=== PATIENT | male | born 1945 | race Caucasian/White ===

== ENCOUNTER 2017-11-07 16:56 | Inpatient (IN) ==
--- NOTE | 2017-11-07 17:03 | Emergency Department Note ---
Disposition Clinical Impression: SYDNEE (acute kidney injury) Foot ulcer, left Qualifiers: Non-pressure ulcer stage: unspecified non-pressure ulcer stage Qualified Code(s ): L97.529 - Non-pressure chronic ulcer of other part of left foot with unspecified severity Disposition: Admitted As Inpatient Condition: Good [facility]: [facility]Primary Care Provider[facility] - Forms: ED Satisfaction Letter Extremity Problem HPI - General Chief complaint: ED Extremity Problem,Nontraumatic Stated complaint: Foot Infection Time Seen by Provider: 11/07/17 17:00 Source: patient Mode of arrival: EMS Limitations: no limitations Nursing Notes Reviewed: Yes Vital Signs Reviewed: Yes - History of Present Illness HPI Narrative: 72-year-old male with a past medical history of hypertension, hyperlipidemia, Parkinson's who presents to the ER from the [facility] due to concern for gangrene. Patient states he has had issues with his left foot for several days and started noticing changes 2 days ago. States that it has been more swollen on the outside portion. He reports he is diabetic and has no sensation in his lower extremities. Denies any fevers nausea vomiting or diarrhea. He was seen today where they did an x-ray concerning for gangrene and was sent here for evaluation. He voices no complaints upon arrival. Pt Subjective Complaint: other (Left foot infection) Onset (ago): day(s) Consistency: constant Injury Location: left, lower extremity Pain Scale: 3 Radiation: none Improves with: nothing Worsens with: nothing Associated symptoms: Reports: denies other symptoms - Related Data Home Medications Medication Instructions Recorded Confirmed Carbidopa/Levodopa 1 tab PO TID 11/07/17 11/07/17 [Carbidopa-Levodopa 25-100 Tab] Metoprolol [Lopressor] 25 mg PO BID 11/07/17 11/07/17 Simvastatin [Zocor] 20 mg PO HS 11/07/17 11/07/17 diazePAM [Valium] 10 mg PO DAILY 11/07/17 11/07/17 hydroCHLOROthiazide 25 mg PO DAILY 11/07/17 11/07/17 [Hydrochlorothiazide] metFORMIN [Glucophage] 500 mg PO BIDWM 11/07/17 11/07/17 Allergies Allergy/AdvReac Type Severity Reaction Status Date / Time Penicillins [PCN] Allergy Rash Verified 11/07/17 17:32 All systems ED: reviewed and negative except as stated. Constitutional: Denies: fever, chills Gastrointestinal: Denies: nausea, vomiting, diarrhea Musculoskeletal: Reports: other (Left foot swelling) Past Medical History - Past Medical History Attestation: Yes The following information was validated with the patient. Source: patient Medical history: Reports: diabetes, hyperlipidemia, hypertension Surgical history: Reports: non-contributory Physical Exam - General Limitations: no limitations General appearance: alert, in no apparent distress - Head Head exam: atraumatic - Eye Eye exam: Present: normal appearance - ENT ENT exam: normal exam - Neck Neck exam: Present: normal inspection - Chest Chest inspection: Present: normal inspection, symmetric chest wall rise - Respiratory Respiratory exam: Present: normal lung sounds bilaterally - Cardiovascular Cardiovascular exam: Present: regular rate, normal rhythm, normal heart sounds - Abdominal Exam Abdominal exam: Present: soft, Non-Tender. Absent: tenderness - Extremities Exam Extremities exam: Present: normal inspection, full ROM - Expanded Upper Extremity Exam Shoulder exam: Present: normal inspection, full ROM Arm exam: Present: normal inspection, full ROM Elbow exam: Present: normal inspection, full ROM Forearm/Wrist exam: Present: normal inspection, full ROM Hand exam: Present: normal inspection, full ROM - Expanded Lower Extremity Exam Hip/Pelvis exam: Present: normal inspection, full ROM Upper leg exam: Present: normal inspection, full ROM Knee exam: Present: normal inspection, full ROM Lower leg exam: Present: normal inspection, full ROM Ankle exam: Present: normal inspection, full ROM Foot/toe exam: Present: swelling (There is significant soft tissue swelling to the lateral distal aspect of the left foot with 2 independent ulcerated areas one on the dorsum on the plantar aspect. No expressible drainage from the site. No crepitus on palpation of the foot or extending up to the ankle.) Neurovascular/Tendon exam: Absent: motor deficit, sensory deficit - Skin Skin exam: Present: warm, dry Course Course Narrative: Patient seen and examined at time of arrival. 2+ DP pulse on the left foot. [facility] no documented antibiotics given. We will cover him broad-spectrum with vancomycin, cefepime and clindamycin. We will also pursue a CT scan of his foot as well as labs including inflammatory markers , lactate. - Consultations Consultation #1: Discussed with the on-call government guard Dr. sessions. Discussed patient's history exam imaging and lab findings as well as interventions. Agreeable with consultation and admit to the hospitalist service. Vital Signs Temperature 98.5 F 11/07/17 17:01 Pulse Rate 82 11/07/17 17:01 Respiratory Rate 14 11/07/17 17:01 Blood Pressure 169/81 11/07/17 17:01 O2 Sat by Pulse Oximetry 99 11/07/17 17:01 Temperature 98.5 F 11/07/17 17:01 Pulse Rate 82 11/07/17 17:01 Respiratory Rate 14 11/07/17 17:01 Blood Pressure 169/81 11/07/17 17:01 O2 Sat by Pulse Oximetry 99 11/07/17 17:01 Oxygen Delivery Oxygen Delivery Room Air Extremity Problem, Nontraumati - MDM Narrative Medical decision making narrative: 72-year-old male with left foot swelling for several days. History of diabetic neuropathy. Ulceration to the lateral distal fifth digit. Hemodynamic stable. Normal white count. Elevated ESR and CRP. CT evidence of ulceration without fluid collection. Patient given vancomycin, cefepime and Clinda. Case discussed with podiatry in consultation. Admitted to the hospitalist service. - Lab Data Lab results reviewed: Yes I reviewed the patient's lab results. Result diagrams: 11/07/17 17:10 11/07/17 17:10 Lab Results 11/07/17 11/07/17 11/07/17 Range/Units 17:10 17:10 17:10 WBC (4.3-11.1) K/mcL RBC (4.19-5.50) M/mcL Hgb (12.9-16.9) g/dL Hct (37.5-50.1) % MCV (83.0-100.0) fL MCH (28.0-33.3) pg MCHC (31.6-35.5) g/dL RDW (11.5-14.5) % Plt Count (140-400) K/mcL MPV (9.4-12.4) fL Immature Gran % (0-4) % Seg Neutrophils % % Lymphocytes % % Monocytes % % Eosinophils % % Basophils % % Neutrophils # (1.6-8.9) K/mcL Lymphocytes # (0.6-4.6) K/mcL Monocytes # (0.0-1.3) K/mcL Eosinophils # (0.0-0.6) K/mcL Basophils # (0.0-0.2) K/mcL ESR 76 H (0-10) mm/hr Sodium (136-145) mEq/L Potassium (3.5-5.1) mEq/L Chloride (98-107) mEq/L Carbon Dioxide (23-29) mEq/L BUN (8-23) mg/dL Creatinine (0.70-1.30) mg/dL Est GFR ( Amer) (> 60) Est GFR (Non-Af Amer) (> 60) BUN/Creatinine Ratio (6-26) Glucose (70-105) mg/dL Calculated Osmolality (280-300) Lactic Acid 1.3 (0.5-2.2) mmol/L Calcium (8.6-10.3) mg/dL C-Reactive Protein 187 H (Less than 10) mg/L 11/07/17 11/07/17 Range/Units 17:10 17:10 WBC 10.9 (4.3-11.1) K/mcL RBC 3.04 L (4.19-5.50) M/mcL Hgb 10.7 L (12.9-16.9) g/dL Hct 29.6 L (37.5-50.1) % MCV 97.4 (83.0-100.0) fL MCH 35.2 H (28.0-33.3) pg MCHC 36.1 H (31.6-35.5) g/dL RDW 12.5 (11.5-14.5) % Plt Count 165 (140-400) K/mcL MPV 10.1 (9.4-12.4) fL Immature Gran % 0.4 (0-4) % Seg Neutrophils % 84.7 % Lymphocytes % 6.6 % Monocytes % 7.7 % Eosinophils % 0.4 % Basophils % 0.2 % Neutrophils # 9.2 H (1.6-8.9) K/mcL Lymphocytes # 0.7 (0.6-4.6) K/mcL Monocytes # 0.8 (0.0-1.3) K/mcL Eosinophils # 0.0 (0.0-0.6) K/mcL Basophils # 0.0 (0.0-0.2) K/mcL ESR (0-10) mm/hr Sodium 136 (136-145) mEq/L Potassium 3.5 (3.5-5.1) mEq/L Chloride 100 (98-107) mEq/L Carbon Dioxide 27 (23-29) mEq/L BUN 33 H (8-23) mg/dL Creatinine 1.59 H (0.70-1.30) mg/dL Est GFR ( Amer) 52 L (> 60) Est GFR (Non-Af Amer) 43 L (> 60) BUN/Creatinine Ratio 21 (6-26) Glucose 154 H (70-105) mg/dL Calculated Osmolality 292 (280-300) Lactic Acid (0.5-2.2) mmol/L Calcium 8.9 (8.6-10.3) mg/dL C-Reactive Protein (Less than 10) mg/L - Radiology Data Radiology results reviewed: Yes I reviewed the patient's radiology results. Foot CT 11/07/17 17:02 IMPRESSION: 1. No CT evidence of osteomyelitis or other acute osseous abnormality. If clinically indicated further evaluation could be obtained with MRI. 2. Large deep soft tissue ulceration lateral to the 5th MTP joint with underlying induration. No definite sinus tract or drainable fluid collection. 3. Diffuse subcutaneous fat stranding compatible with cellulitis. D/ / Prakash Guerrero MD / Prakash Guerrero MD Interpreting Provider: Prakash Guerrero MD S.Hussain - [place] Situation: Demographics, MOA Background: Presenting Complaint, Relevant PMH, Meds, & Allergies Assessment: Vital Signs, Course and respsone to treatment, Exam Concerns, Patient/Family Expectation, Pertinant Lab Results Recommendation: Barrier(s) to disposition, Recommendation based on pending studies, treatments, or consults S.Hussain Report Given to: Antolin Saleem [facility] Time: 18:38
[2017-11-07] MEDS ORDERED: Clindamycin 600 MG/50 ML 600 MG/50 ML IV.SOLN IVPB ONE (17:08)
--- NOTE | 2017-11-07 17:08 | Emergency Department Note ---
Disposition Clinical Impression: Foot ulcer, left, SYDNEE (acute kidney injury) Disposition: Admitted As Inpatient Condition: Good [facility]: [facility] [Primary Care Provider[facility] - Forms: ED Satisfaction Letter General Adult HPI - General Chief complaint: ED Extremity Problem,Nontraumatic Stated complaint: Foot Infection Time Seen by Provider: 11/07/17 17:00 Source: patient Mode of arrival: EMS Limitations: no limitations Nursing Notes Reviewed: Yes Vital Signs Reviewed: Yes - History of Present Illness Pain Scale: 3 - Related Data Home Medications Medication Instructions Recorded Confirmed Carbidopa/Levodopa 1 tab PO TID 11/07/17 11/07/17 [Carbidopa-Levodopa 25-100 Tab] Metoprolol [Lopressor] 25 mg PO BID 11/07/17 11/07/17 Simvastatin [Zocor] 20 mg PO HS 11/07/17 11/07/17 diazePAM [Valium] 10 mg PO DAILY 11/07/17 11/07/17 hydroCHLOROthiazide 25 mg PO DAILY 11/07/17 11/07/17 [Hydrochlorothiazide] metFORMIN [Glucophage] 500 mg PO BIDWM 11/07/17 11/07/17 Allergies Allergy/AdvReac Type Severity Reaction Status Date / Time Penicillins [PCN] Allergy Rash Verified 11/07/17 17:32 Physical Exam - General Limitations: no limitations Course Vital Signs Temperature 98.5 F 11/07/17 17:01 Pulse Rate 82 11/07/17 17:01 Respiratory Rate 14 11/07/17 17:01 Blood Pressure 169/81 11/07/17 17:01 O2 Sat by Pulse Oximetry 99 11/07/17 17:01 Temperature 98.5 F 11/07/17 17:01 Pulse Rate 82 11/07/17 17:01 Respiratory Rate 14 11/07/17 17:01 Blood Pressure 169/81 11/07/17 17:01 O2 Sat by Pulse Oximetry 99 11/07/17 17:01 Oxygen Delivery Oxygen Delivery Room Air Medical Decision Making - [facility] Narrative Medical decision making narrative: Foot CT 11/07/17 17:02 IMPRESSION: 1. No CT evidence of osteomyelitis or other acute osseous abnormality. If clinically indicated further evaluation could be obtained with MRI. 2. Large deep soft tissue ulceration lateral to the 5th MTP joint with underlying induration. No definite sinus tract or drainable fluid collection. 3. Diffuse subcutaneous fat stranding compatible with cellulitis. D/ / Prakash Guerrero MD / Prakash Guerrero MD Interpreting Provider: Prakash Guerrero MD 1837 hrs.: No osteo-on CT. He does have a soft tissue infection he is on antibiotics. Accepted by hospitalist. - Lab Data Result diagrams: 11/07/17 17:10 11/07/17 17:10 Lab Results 11/07/17 11/07/17 11/07/17 Range/Units 17:10 17:10 17:10 WBC (4.3-11.1) K/mcL RBC (4.19-5.50) M/mcL Hgb (12.9-16.9) g/dL Hct (37.5-50.1) % MCV (83.0-100.0) fL MCH (28.0-33.3) pg MCHC (31.6-35.5) g/dL RDW (11.5-14.5) % Plt Count (140-400) K/mcL MPV (9.4-12.4) fL Immature Gran % (0-4) % Seg Neutrophils % % Lymphocytes % % Monocytes % % Eosinophils % % Basophils % % Neutrophils # (1.6-8.9) K/mcL Lymphocytes # (0.6-4.6) K/mcL Monocytes # (0.0-1.3) K/mcL Eosinophils # (0.0-0.6) K/mcL Basophils # (0.0-0.2) K/mcL ESR 76 H (0-10) mm/hr Sodium (136-145) mEq/L Potassium (3.5-5.1) mEq/L Chloride (98-107) mEq/L Carbon Dioxide (23-29) mEq/L BUN (8-23) mg/dL Creatinine (0.70-1.30) mg/dL Est GFR ( Amer) (> 60) Est GFR (Non-Af Amer) (> 60) BUN/Creatinine Ratio (6-26) Glucose (70-105) mg/dL Calculated Osmolality (280-300) Lactic Acid 1.3 (0.5-2.2) mmol/L Calcium (8.6-10.3) mg/dL C-Reactive Protein 187 H (Less than 10) mg/L 11/07/17 11/07/17 Range/Units 17:10 17:10 WBC 10.9 (4.3-11.1) K/mcL RBC 3.04 L (4.19-5.50) M/mcL Hgb 10.7 L (12.9-16.9) g/dL Hct 29.6 L (37.5-50.1) % MCV 97.4 (83.0-100.0) fL MCH 35.2 H (28.0-33.3) pg MCHC 36.1 H (31.6-35.5) g/dL RDW 12.5 (11.5-14.5) % Plt Count 165 (140-400) K/mcL MPV 10.1 (9.4-12.4) fL Immature Gran % 0.4 (0-4) % Seg Neutrophils % 84.7 % Lymphocytes % 6.6 % Monocytes % 7.7 % Eosinophils % 0.4 % Basophils % 0.2 % Neutrophils # 9.2 H (1.6-8.9) K/mcL Lymphocytes # 0.7 (0.6-4.6) K/mcL Monocytes # 0.8 (0.0-1.3) K/mcL Eosinophils # 0.0 (0.0-0.6) K/mcL Basophils # 0.0 (0.0-0.2) K/mcL ESR (0-10) mm/hr Sodium 136 (136-145) mEq/L Potassium 3.5 (3.5-5.1) mEq/L Chloride 100 (98-107) mEq/L Carbon Dioxide 27 (23-29) mEq/L BUN 33 H (8-23) mg/dL Creatinine 1.59 H (0.70-1.30) mg/dL Est GFR ( Amer) 52 L (> 60) Est GFR (Non-Af Amer) 43 L (> 60) BUN/Creatinine Ratio 21 (6-26) Glucose 154 H (70-105) mg/dL Calculated Osmolality 292 (280-300) Lactic Acid (0.5-2.2) mmol/L Calcium 8.9 (8.6-10.3) mg/dL C-Reactive Protein (Less than 10) mg/L Attestation Statement - Attestation Attestation: I examined this patient and my medical decision-making was reviewed with the Resident Physician. I agree with the documented findings, disposition and treatment plan as described except to the extent set forth below. Patient seen and evaluated on arrival with Dr. Dave and EMS. I agree with his evaluation and management plan, supervise care the patient's stay Patient presents from the [facility] with a possible osteitis to his left foot. He is diabetics is not having pain. He does have a lot of swelling in the foot also lesion on the fifth toe side of the foot. Were going to add on blood cultures and lactic acid started on antibiotics and CT the area. His labs from the [facility] show creatinine of 1.8 sore not to use IV contrast with him. We will also give him fluids here and reassess. She is in agreement with plan. He will need admission.
[2017-11-07 17:25] LABS: Basophils % 0.2 %; Eosinophils % 0.4 %; Hematocrit 29.6 % (37.5-50.1); Hemoglobin 10.7 g/dL (12.9-16.9); Immature Granulocytes % 0.4 % (0-4); Lymphocytes # 0.7 K/mcL (0.6-4.6); Lymphocytes % 6.6 %; Mean Corpuscular HGB Conc 36.1 g/dL (31.6-35.5); Mean Corpuscular Hemoglobin 35.2 pg (28.0-33.3); Mean Corpuscular Volume 97.4 fL (83.0-100.0); Mean Platelet Volume 10.1 fL (9.4-12.4); Monocytes # 0.8 K/mcL (0.0-1.3); Monocytes % 7.7 %; Neutrophils # 9.2 K/mcL (1.6-8.9); Platelet Count 165 K/mcL (140-400); Red Blood Count 3.04 M/mcL (4.19-5.50); Red Cell Distribution Width 12.5 % (11.5-14.5); Segmented Neutrophils % 84.7 %
[2017-11-07 17:45] LABS: Calcium 8.9 mg/dL (8.6-10.3); Potassium 3.5 mEq/L (3.5-5.1)
[2017-11-08] MEDS ORDERED: *HR* Dextrose 50 % in Water (Syg) 50 ML SYRINGE IVP PRN (00:07)
[2017-11-08] MEDS ORDERED: Dextrose Gel 15 GM/37.5 ML TUBE PO PRN ×2 (00:07)
[2017-11-08] MEDS ORDERED: Naloxone 0.4 MG/ML INJ IVP PRN (00:07)
[2017-11-08] MEDS ORDERED: D5% in Water 1,000 ML IVC PRN (00:07)
[2017-11-08] MEDS ORDERED: Acetaminophen 325 MG TABLET PO PRN (00:07)
--- NOTE | 2017-11-08 00:49 | Internal Med History&Physical ---
Date of Encounter: 11/07/17 Time of Encounter: 23:40 Internal Medicine - H&P: HPI Chief complaint: left foot ulcer Admitted From: Emergency Dept Plans for Post Hospital Care: Home History of present illness: Mr. Georges is a 72 year old male who presented to our ER tonight after being referred here by the [facility] urgent care. He has been dealing with a left foot ulcer and swelling for the last 2 weeks. He saw his PCP at the [facility] today who referred him to the [facility] who then referred him to our ER. He was noted to have significant cellulitis and [address] scan revealed cellulitis but no evidence of osteomyelitis. He was subsequently admitted to the hospitalist service. Upon my assessment of the patient, he is in no distress. However, there is a significant foul smell emanating from his foot. He denies any known trauma or injury. He does have some mild neuropathy, but he states he usually does not have much problems ambulating and/or injuring his foot. He has had chronic foot wounds in the past for which she sees a benefits specialist recruiter in [place]. Although he denies neuropathy, I suspect he has peripheral neuropathy. He is diabetic but does not take any insulin. He also suffers from Parkinson's disease and admits to having some difficulty ambulating. He denies any fevers, chills, or night sweats. He denies any nausea, vomiting, or diarrhea. He denies any prior foot surgery. He states his previous foot wounds were treated conservatively with wound care and antibiotics. Past Med Surg Social Fam HX - Past Medical History Attestation: Yes The following information was validated with the patient. Source: patient, old records reviewed Medical history: diabetes, hyperlipidemia, hypertension Psychiatric history: no psych history - Past Surgical History Surgical History: no surgical history - Social History Smoking Status: Never smoker Smokeless Tobacco Status: No Alcohol use: none Drug use: none Current living situation: Home, With Family Activity Level: Independent ambulation Recent Out of Country Travel Within the Last 8 Weeks: No - Family History Father Living Status: Hx Family Cancer: Yes (stomach) Internal Medicine - H&P: Meds Carbidopa/Levodopa [Carbidopa-Levodopa 25-100 Tab] 1 tab PO TID 11/07/17 [ History] Metoprolol [Lopressor] 25 mg PO BID 11/07/17 [History] Simvastatin [Zocor] 20 mg PO HS 11/07/17 [History] diazePAM [Valium] 10 mg PO DAILY 11/07/17 [History] hydroCHLOROthiazide [Hydrochlorothiazide] 25 mg PO DAILY 11/07/17 [History] metFORMIN [Glucophage] 500 mg PO BIDWM 11/07/17 [History] 3 Allergy/AdvReac Type Severity Reaction Status Date / Time Penicillins [PCN] Allergy Rash Verified 11/07/17 17:32 - Constitutional Constitutional: no chills, no fever(s), no night sweats - EENT Eyes: no blurry vision, no change in vision Ears: no ear pain, no tinnitus Nose, mouth and throat: no nasal congestion, no sore throat - Cardiovascular Cardiovascular ROS IM: no chest pain, no dyspnea, no dyspnea on exertion, no edema - Respiratory Respiratory: no cough, no dyspnea, no hemoptysis - Gastrointestinal Gastrointestinal: no abdominal pain, no diarrhea, no hematemesis, no hematochezia, no melena, no nausea, no vomiting - Genitourinary Genitourinary ROS male: no dysuria, no flank pain, no hematuria - Musculoskeletal Musculoskeletal ROS IM: atrophy (left foot), no back pain - Integumentary Integumentary IM: sores (left foot), no rash - Neurological Neurological ROS: tremor(s) (Parkinson's), no dizziness, no focal weakness, no frequent falls, no headache(s) - Psychiatric Psychiatric: no anxiety, no depression - Endocrine Endocrine IM: no polydipsia, no polyuria - Hematologic/Lymphatic Hematologic/Lymphatic: no easy bruising, no lymphadenopathy - Allergic/Immunologic Allergic/Immunologic: no GI upset with certain foods - Constitutional Vitals: Temp Pulse Resp BP Pulse Ox 98.5 F 68 14 143/75 97 11/07/17 23:13 11/07/17 23:13 11/07/17 23:13 11/07/17 23:13 11/07/17 23:13 General appearance: Present: cooperative, A&O X 3, pleasant, no acute distress, answers questions appropriately - Head Head exam: Present: normal inspection - Eye Eye exam: Present: EOMI, PERRL. Absent: scleral icterus Pupils: Present: normal accommodation - ENT ENT exam: Present: mucous membranes dry, normal exam, normal oropharynx - Neck Neck exam general surgery: Present: full ROM, supple. Absent: tenderness, nuchal rigidity, thyromegaly - Respiratory Respiratory exam: Present: CTAB. Absent: chest wall tenderness, rales, respiratory distress, rhonchi, wheezes - Cardiovascular Cardiovascular exam: Present: RRR, +S1, +S2. Absent: diastolic murmur, systolic murmur - GI/Abdominal GI/Abdominal exam: Present: normal bowel sounds, soft. Absent: hepatomegaly, mass, splenomegaly, tenderness - Extremities Exam Extremities exam: Present: full ROM, normal capillary refill, warm, radial pulses palpable and symmetrical. Absent: calf tenderness Additional comments: left foot with plantar ulceration and foul smell; surrounding cellulitis - Back Exam Back exam: Present: normal inspection. Absent: CVA tenderness (L), CVA tenderness (R) - Neurological Exam Neurological exam: Present: alert, CN II-XII intact, oriented X3 Additional comments: resting tremors; decreased sensation in feet - Psychiatric Psychiatric exam: Present: normal affect, normal mood - Skin Skin exam: Present: dry, warm Internal Med - H&P Results - Labs CBC & Chem 7: 11/07/17 17:10 11/07/17 17:10 - Diagnostic Studies Other Images Status: image reviewed by me (foot CT report reviewed) - Assessment and plan (1) Foot ulcer, left Current Visit: Yes Status: Acute Assessment and plan: 1. Will culture blood. 2. Continue IV antibiotics. 3. Podiatry consult for likely debridement and possible further surgery. Qualifiers: Non-pressure ulcer stage: unspecified non-pressure ulcer stage Qualified Code(s): L97.529 - Non-pressure chronic ulcer of other part of left foot with unspecified severity (2) SYDNEE (acute kidney injury) Current Visit: Yes Status: Acute Assessment and plan: 1. Hold HCTZ and hydrate with IVF. 2. Unknown baseline renal function. 3. Follow renal function and consult nephrology if fails to improve. 4. May need imaging of kidneys if renal function does not improve. (3) Parkinson disease Current Visit: Yes Status: Chronic Assessment and plan: 1. Continue home medications. 2. Follow up with PCP/Neurology as outpatient. (4) Type 2 diabetes mellitus Current Visit: Yes Status: Chronic Assessment and plan: 1. Hold Metformin due to kidney disease. 2. Will use SSI and check A1C. 3. Adjust dosing as necessary. Qualifiers: Diabetes mellitus exterminator insulin use: without exterminator use Diabetes mellitus complication status: with diabetic arthropathy Diabetes mellitus complication detail: with neuropathic arthropathy Qualified Code(s): E11.610 - Type 2 diabetes mellitus with diabetic neuropathic arthropathy (5) DVT prophylaxis Current Visit: Yes Status: Acute Assessment and plan: 1. Heparin SQ.
[2017-11-08] MEDS ORDERED: Levofloxacin 500 MG/100 ML 500 MG/100 ML BAG IVPB SCH (01:00)
[2017-11-08 01:07] LABS: Eosinophils % 1.4 %; Hematocrit 27.6 % (37.5-50.1); Immature Granulocytes % 0.4 % (0-4); Lymphocytes % 11.8 %; Mean Corpuscular HGB Conc 36.2 g/dL (31.6-35.5); Mean Corpuscular Hemoglobin 34.8 pg (28.0-33.3); Mean Corpuscular Volume 96.2 fL (83.0-100.0); Monocytes % 9.1 %; Platelet Count 173 K/mcL (140-400); Red Blood Count 2.87 M/mcL (4.19-5.50); Red Cell Distribution Width 12.4 % (11.5-14.5); Segmented Neutrophils % 77.1 %
[2017-11-08 01:08] LABS: Basophils % 0.2 %; Eosinophils # 0.1 K/mcL (0.0-0.6); Monocytes # 0.7 K/mcL (0.0-1.3); Neutrophils # 6.2 K/mcL (1.6-8.9)
[2017-11-08 01:10] LABS: INR 1.3; Prothrombin Time 14.6 Seconds (9.4-12.1)
[2017-11-08 01:28] LABS: Alanine Aminotransferase 6 Units/L (7-52); Albumin 3.5 g/dL (3.5-5.7); Alkaline Phosphatase 68 Units/L (34-104); Aspartate Amino Transferase 12 Units/L (13-39); BUN/Creatinine Ratio 24 (6-26); Bilirubin,Total 1.3 mg/dL (0.3-1.0); Blood Urea Nitrogen 30 mg/dL (8-23); Calcium 8.8 mg/dL (8.6-10.3); Carbon Dioxide 27 mEq/L (23-29); Chloride 101 mEq/L (98-107); Globulin 3.4 g/dL (2.4-3.5); Glucose 101 mg/dL (70-105); Magnesium 1.1 mg/dL (1.6-2.6); Osmolality,Calculated 290 (280-300); Potassium 3.2 mEq/L (3.5-5.1); Sodium 137 mEq/L (136-145); Total Protein 6.9 g/dL (6.4-8.9); eGFR For African Americans > 60 (> 60); eGFR For Non-African Americans 56 (> 60)
[2017-11-08] MEDS: 0.9 % Sodium Chloride 1,000 ML IVC SCH ×2 (01:43→15:11)
[2017-11-08] MEDS: *HR* Heparin 5,000 UNIT/ML VIAL SQ SCH ×2 (06:40→17:14)
[2017-11-08] MEDS: Insulin LISPRO 300 UNITS/3 ML VIAL SQ SCH ×3 (08:21→17:14)
[2017-11-08] MEDS: diazePAM 10 MG TABLET PO SCH (08:23)
[2017-11-08] MEDS: Carbidopa/Levodopa 25/100 TABLET PO SCH ×3 (08:23→21:20)
[2017-11-08 08:36] LABS: Estimated Average Glucose 108 mg/dl; Hemoglobin A1C 5.4 %
--- NOTE | 2017-11-08 10:19 | Internal Med Progress Note ---
Date of Encounter: 11/08/17 Time of Encounter: 10:15 - Assessment and plan (1) Foot ulcer, left Current Visit: Yes Status: Acute Assessment and plan: Follow-up blood and wound culture Consult Wound Care Podiatry consulted, recommendations appreciated. Continue Vanc/, change Levaquin to Cefepime (PCN reaction is rash, no anaphylaxis) Qualifiers: Non-pressure ulcer stage: unspecified non-pressure ulcer stage Qualified Code(s): L97.529 - Non-pressure chronic ulcer of other part of left foot with unspecified severity (2) SYDNEE (acute kidney injury) Current Visit: Yes Status: Acute Assessment and plan: Holding HCTZ Renally dose medications Avoid nephrotoxic medications - Appears improving with current therapy. (3) Parkinson disease Current Visit: Yes Status: Chronic Assessment and plan: 1. Continue home medications. 2. Follow up with PCP/Neurology as outpatient. (4) Type 2 diabetes mellitus Current Visit: Yes Status: Chronic Assessment and plan: 1. Hold Metformin due to kidney disease. 2. Will use SSI and check A1C. 3. Adjust dosing as necessary. Qualifiers: Diabetes mellitus mcc insulin use: without mcc use Diabetes mellitus complication status: with diabetic arthropathy Diabetes mellitus complication detail: with neuropathic arthropathy Qualified Code(s): E11.610 - Type 2 diabetes mellitus with diabetic neuropathic arthropathy (5) DVT prophylaxis Current Visit: Yes Status: Acute Assessment and plan: 1. Heparin SQ. - Time Spent With Patient Total time spent is greater than 50% in coordination of care (as documented) at patient's floor/unit and/or counseling patient: - Subjective Interval history: No complaints, no acute events. - Constitutional Vitals: Temp Pulse Resp BP Pulse Ox 98.5 F 76 16 129/74 96 11/08/17 06:55 11/08/17 06:55 11/08/17 06:55 11/08/17 06:55 11/08/17 06:55 General appearance: Present: cooperative, A&O X 3, pleasant, no acute distress, answers questions appropriately Exam: - Head Head exam: Present: normal inspection - Eye Eye exam: Present: EOMI, PERRL. Absent: scleral icterus Pupils: Present: normal accommodation - ENT ENT exam: Present: mucous membranes dry, normal exam, normal oropharynx - Neck Neck exam general surgery: Present: full ROM, supple. Absent: tenderness, nuchal rigidity, thyromegaly - Respiratory Respiratory exam: Present: CTAB. Absent: chest wall tenderness, rales, respiratory distress, rhonchi, wheezes - Cardiovascular Cardiovascular exam: Present: RRR, +S1, +S2. Absent: diastolic murmur, systolic murmur - GI/Abdominal GI/Abdominal exam: Present: normal bowel sounds, soft. Absent: hepatomegaly, mass, splenomegaly, tenderness - Extremities Exam Extremities exam: Present: full ROM, normal capillary refill, warm, radial pulses palpable and symmetrical. Absent: calf tenderness Additional comments: left foot with plantar ulceration and foul smell; surrounding cellulitis - Back Exam Back exam: Present: normal inspection. Absent: CVA tenderness (L), CVA tenderness (R) - Neurological Exam Neurological exam: Present: alert, CN II-XII intact, oriented X3 Additional comments: resting tremors; decreased sensation in feet - Psychiatric Psychiatric exam: Present: normal affect, normal mood - Skin Skin exam: Present: dry, warm Internal Medicine: Result - Labs CBC & Chem 7: 11/08/17 00:42 11/08/17 00:42 Labs: Short CBC 11/08/17 Range/Units 00:42 WBC 8.1 (4.3-11.1) K/mcL Hgb 10.0 L (12.9-16.9) g/dL Hct 27.6 L (37.5-50.1) % Plt Count 173 (140-400) K/mcL Neutrophils # 6.2 (1.6-8.9) K/mcL BMP 11/08/17 00:42 Sodium 137 Potassium 3.2 L Chloride 101 Carbon Dioxide 27 BUN 30 H Creatinine 1.27 Glucose 101 Calcium 8.8 Liver Function 11/08/17 Range/Units 00:42 Total Bilirubin 1.3 H (0.3-1.0) mg/dL AST 12 L (13-39) Units/L ALT 6 L (7-52) Units/L Alkaline Phosphatase 68 (34-104) Units/L Albumin 3.5 (3.5-5.7) g/dL - ABG Interpretation ABG results: PT/INR, D-dimer PT 14.6 Seconds (9.4-12.1) H 11/08/17 00:42 Consult Discharge Plan - Plan [facility] [Primary Care Provider] -
--- NOTE | 2017-11-08 13:42 | Podiatry Consult Note ---
Date of Encounter: 11/08/17 Time of Encounter: 12:00 Assessment and Plan (1) Foot ulcer, left Current visit: Yes Status: Acute assessment: Large diabetic ulcer sub mt head #5 left with blowout wound to dorsal/lateral aspect of foot Plan: Assessed at bedside Cleaned with saline Large amount of purulent drainage and foul odor noted with associated cellulitis Patient ate small breakfast but has not had lunch Will plan for formal debridement of wound in [facility] with with possible resection of bone Continue medical management Continue IV antibiotics Patient aware of plan. Qualifiers: Non-pressure ulcer stage: unspecified non-pressure ulcer stage Qualified Code(s): L97.529 - Non-pressure chronic ulcer of other part of left foot with unspecified severity History of Present Illness HPI: Mr. Georges is a 72 year old male who presented to [facility] after being referred here by the [place] urgent care.Patient is known to [place] and was sent to our center. States he had a small ulceration of the plantar aspect of his foot which started about 2 weeks ago, states that a day or two ago a wound opened to the top of his foot and he noticed his ankle started to swell. Patient is resting comfortably on arrival. Dressing intact to foot at this time. There is a foul odor noted within room. Patient denies any known trauma or puncture to foot. Patient has had chronic wounds in past which have been cared for by a wound care clinic. Patient has a medical hx significant for DM and parkinsons disease. He is pleasant. He denies any fevers, chills, or night sweats. He denies any nausea, vomiting, or diarrhea. He denies any prior foot surgery. Past Med Surg Social Fam HX - Past Medical History Medical history: diabetes, hyperlipidemia, hypertension Psychiatric history: no psych history - Past Surgical History Surgical History: no surgical history - Social History Smoking Status: Never smoker Smokeless Tobacco Status: No Alcohol use: none Drug use: none - Family History Father Living Status: Hx Family Cancer: Yes (stomach) Medications and Allergies Carbidopa/Levodopa [Carbidopa-Levodopa 25-100 Tab] 1 tab PO TID 11/07/17 [ History] Metoprolol [Lopressor] 25 mg PO BID 11/07/17 [History] Simvastatin [Zocor] 20 mg PO HS 11/07/17 [History] diazePAM [Valium] 10 mg PO DAILY 11/07/17 [History] hydroCHLOROthiazide [Hydrochlorothiazide] 25 mg PO DAILY 11/07/17 [History] metFORMIN [Glucophage] 500 mg PO BIDWM 11/07/17 [History] 3 Allergy/AdvReac Type Severity Reaction Status Date / Time Penicillins [PCN] Allergy Rash Verified 11/07/17 17:32 All Systems Reviewed: The remainder of the systems were reviewed and are negative Physical Exam - Constitutional Vitals: Temp Pulse Resp BP Pulse Ox 98.3 F 81 16 132/78 95 11/08/17 10:41 11/08/17 10:41 11/08/17 10:41 11/08/17 10:41 11/08/17 10:41 Exam: General Examination: CONSTITUTIONAL: Alert, oriented, in no acute distress, non-toxic. EXTREMITIES: CFT 3 seconds all toes. Edema +1 and pulses faintly palpable SKIN: There is a diabetic wound noted to plantar/lateral aspect of left foot sub mt head #5 with tracking and blowout wound to lateral/dorsal aspect of foot. Foul odor and purulent drainage. Able to probe through wound connection. There is associated surrounding edema and erythema consistent with cellulitis and wound infection. There is fluctuance noted within wound but not surrounding wound. There is no tunneling noted to probe to be outside of visible wound margins. No probe to bone on assessment. 50% black eschar tissue 50% yellow fibrous slough, no healthy granulation tissue noted to wound at this time. NEUROLOGIC: Diminished sensation to light touch. Sensation to pain and probe of wound. Results - Labs Result Diagrams: 11/08/17 00:42 11/08/17 00:42 Labs: Abnormal lab results RBC 2.87 M/mcL (4.19-5.50) L 11/08/17 00:42 Hgb 10.0 g/dL (12.9-16.9) L 11/08/17 00:42 Hct 27.6 % (37.5-50.1) L 11/08/17 00:42 MCH 34.8 pg (28.0-33.3) H 11/08/17 00:42 MCHC 36.2 g/dL (31.6-35.5) H 11/08/17 00:42 ESR 76 mm/hr (0-10) H 11/07/17 17:10 PT 14.6 Seconds (9.4-12.1) H 11/08/17 00:42 Potassium 3.2 mEq/L (3.5-5.1) L 11/08/17 00:42 BUN 30 mg/dL (8-23) H 11/08/17 00:42 Est GFR (Non-Af Amer) 56 (> 60) L 11/08/17 00:42 POC Glucose 126 mg/dL (70-99) H 11/08/17 11:26 Magnesium 1.1 mg/dL (1.6-2.6) L 11/08/17 00:42 Total Bilirubin 1.3 mg/dL (0.3-1.0) H 11/08/17 00:42 AST 12 Units/L (13-39) L 11/08/17 00:42 ALT 6 Units/L (7-52) L 11/08/17 00:42 C-Reactive Protein 187 mg/L (Less than 10) H 11/07/17 17:10 Albumin/Globulin Ratio 1.0 (1.1-2.2) L 11/08/17 00:42 H & H 11/08/17 Range/Units 00:42 Hgb 10.0 L (12.9-16.9) g/dL Hct 27.6 L (37.5-50.1) % All other labs normal. Consult Discharge Plan - Plan [facility]errals: [facility] [Primary Care Provider] -
[2017-11-08] MEDS: Cefepime HCl 2,000 MG in Water for inj. (sterile) 20 ML 20 ML IVP SCH ×2 (15:10→23:56)
[2017-11-08] MEDS ORDERED: Cefepime HCl 2,000 MG in 0.9 % Sodium Chloride Mini Bag 100 ML IVPB ONE (17:09)
--- NOTE | 2017-11-08 17:53 | Anesthesia Evaluation PreOp ---
Date of Encounter: 11/08/17 Time of Encounter: 17:51 - Past History Planned Operation: I & D Foot abcess Cardiac History: HTN, Hyperlipidemia HEAD CONCIERGE History: Other (diabetic neuropathy, Parkinsonism on Sinemet) Other Medical History: Renal (Acute on Chronic Kidney Dz), Diabetes Type II ( maintained on Metformin) Anesthesia History: Past Anesthesia Alcohol Use: none Drug use: none Medications and Allergies Carbidopa/Levodopa [Carbidopa-Levodopa 25-100 Tab] 1 tab PO TID 11/07/17 [ History] Metoprolol [Lopressor] 25 mg PO BID 11/07/17 [History] Simvastatin [Zocor] 20 mg PO HS 11/07/17 [History] diazePAM [Valium] 10 mg PO DAILY 11/07/17 [History] hydroCHLOROthiazide [Hydrochlorothiazide] 25 mg PO DAILY 11/07/17 [History] metFORMIN [Glucophage] 500 mg PO BIDWM 11/07/17 [History] 3 Allergy/AdvReac Type Severity Reaction Status Date / Time Penicillins [PCN] Allergy Rash Verified 11/07/17 17:32 - Meds/Allergy Pre-op Review Medications Reviewed: Yes Allergies Reviewed: Yes Beta Blockers on Current Med List: No Anesthesia Results - Labs 11/08/17 00:42 11/08/17 00:42 Laboratory Results Impressions Foot CT 11/07/17 17:02 IMPRESSION: 1. No CT evidence of osteomyelitis or other acute osseous abnormality. If clinically indicated further evaluation could be obtained with MRI. 2. Large deep soft tissue ulceration lateral to the 5th MTP joint with underlying induration. No definite sinus tract or drainable fluid collection. 3. Diffuse subcutaneous fat stranding compatible with cellulitis. D/ / Prakash Guerrero MD / Prakash Guerrero MD Interpreting Provider: Prakash Guerrero MD Laboratory Tests 11/08/17 11/08/17 11/08/17 00:42 00:42 00:42 PT 14.6 H INR 1.3 Est GFR (Non-Af Amer) 56 L POC Glucose Est Mean Plasma Glucose 108 Hemoglobin A1c 5.4 Magnesium 1.1 L 11/08/17 16:36 PT INR Est GFR (Non-Af Amer) POC Glucose 122 H Est Mean Plasma Glucose Hemoglobin A1c Magnesium Anesthesia Exam O2 Sat Height 1.88 m Height 1.88 m Weight 99.5 kg Weight 99.79 kg O2 Sat by Pulse Oximetry 96 O2 Sat by Pulse Oximetry 95 O2 Sat by Pulse Oximetry 96 O2 Sat by Pulse Oximetry 95 O2 Sat by Pulse Oximetry 97 O2 Sat by Pulse Oximetry 98 O2 Sat by Pulse Oximetry 99 Vital Signs Temp Pulse Resp BP Pulse Ox 98.5 F 82 14 169/81 99 11/07/17 17:01 11/07/17 17:01 11/07/17 17:01 11/07/17 17:01 11/07/17 17:01 Height: 6'2" Weight: 219# bmi = 28.2 NPO (# of Hours): mnoC - HEENT Pupil (Motor): Pupils equal, EOMI Mallampati: II Teeth: Normal Oral Opening: Greater than 3 - HEAD CONCIERGE LOC: Oriented HEAD CONCIERGE Motor: Normal RUE, Normal LUE, Normal RLE, Normal LLE, Normal Face HEAD CONCIERGE Sensory: Normal: RUE, LUE, RLE, LLE, Face - Cardiac Rhythm: Regular Murmur: None - Pulmonary Breath Sounds: bilateral Clear Respiratory Effort: Symmetrical Anesthesia Assess/Plan ASA Score: 3 (HTN, Chol, DM, Parkinsonism) Modified Alfredo Scale for Level of Consciousness: Cooperative, oriented, and tranquil Anesthetic Plan: General Monitoring Plan: Standard Monitors Recovery Plan: PACU Anes Supervising Prov Stmt: Pt seen/evaluated, R&B discussed, questions answered and consent obtained. Anand Rodriguez MD
[2017-11-08] MEDS ORDERED: Bupivacaine/Clonidine Syringe 1 EACH SYRINGE ONE ×2 (18:05→19:55)
[2017-11-08] MEDS ORDERED: Propofol 500 MG/50 ML INFUS..BTL ONE (20:17)
--- NOTE | 2017-11-08 20:58 | Anesthesia Evaluation Post Op ---
Date of Encounter: 11/08/17 Time of Encounter: 20:57 - Vital Signs Vital Signs: 3 Vital Signs BP 133/71 Pulse 68 Resp 18 O2 Sat 99% - Lungs Lungs: Clear Ascult./Percussion - Airway Airway: Non-obstructed - Cardiovascular Regular Rate - Mental Status Mental Status: Alert & Oriented, Answers Appropriately - Pain Pain Scale: 0 Pain Scale used: Numeric (1 - 10) - Nausea Vomiting Nausea Vomiting: Not Present - Hydration Hydration: NPO, Has not voided - Discharge PostOp Status: Transfer Patient to floor
[2017-11-09 02:21] LABS: BUN/Creatinine Ratio 21 (6-26); Blood Urea Nitrogen 24 mg/dL (8-23); Calcium 8.6 mg/dL (8.6-10.3); Carbon Dioxide 26 mEq/L (23-29); Chloride 107 mEq/L (98-107); Glucose 96 mg/dL (70-105); Osmolality,Calculated 296 (280-300); Potassium 3.4 mEq/L (3.5-5.1); Sodium 141 mEq/L (136-145); eGFR For African Americans > 60 (> 60); eGFR For Non-African Americans > 60 (> 60)
[2017-11-09 02:50] LABS: Basophils % 0.2 %; Eosinophils # 0.1 K/mcL (0.0-0.6); Eosinophils % 1.8 %; Hematocrit 29.6 % (37.5-50.1); Hemoglobin 10.2 g/dL (12.9-16.9); Immature Granulocytes % 0.4 % (0-4); Lymphocytes % 19.4 %; Mean Corpuscular HGB Conc 34.5 g/dL (31.6-35.5); Mean Corpuscular Hemoglobin 33.3 pg (28.0-33.3); Mean Corpuscular Volume 96.7 fL (83.0-100.0); Monocytes # 0.6 K/mcL (0.0-1.3); Monocytes % 11.7 %; Neutrophils # 3.3 K/mcL (1.6-8.9); Platelet Count 161 K/mcL (140-400); Red Blood Count 3.06 M/mcL (4.19-5.50); Red Cell Distribution Width 12.4 % (11.5-14.5); Segmented Neutrophils % 66.5 %
[2017-11-09] MEDS: *HR* Heparin 5,000 UNIT/ML VIAL SQ SCH ×2 (05:19→18:23)
[2017-11-09] MEDS: Insulin LISPRO 300 UNITS/3 ML VIAL SQ SCH ×3 (07:40→16:50)
[2017-11-09] MEDS: Cefepime HCl 2,000 MG in Water for inj. (sterile) 20 ML 20 ML IVP SCH ×2 (07:54→15:46)
[2017-11-09] MEDS: Carbidopa/Levodopa 25/100 TABLET PO SCH ×3 (07:56→21:43)
[2017-11-09] MEDS: diazePAM 10 MG TABLET PO SCH (07:56)
--- NOTE | 2017-11-09 13:29 | Podiatry Progress Note ---
Date of Encounter: 11/09/17 Time of Encounter: 13:27 - Assessment and Plan (1) Foot ulcer, left Current Visit: Yes Status: Acute Due to the location of the purulence and its close contact with the bone the patient will likely need at least 2-6 weeks of IV antibiotics managed by infectious disease. We will wait for the cultures to return. Patient will need to remain nonweightbearing or partial weightbearing to the left heel. Patient will need daily dressing changes. Patient will likely need a wound VAC applied tomorrow. We will consider another washout depending on how the wound looks the next few days. Qualifiers: Non-pressure ulcer stage: unspecified non-pressure ulcer stage Qualified Code(s): L97.529 - Non-pressure chronic ulcer of other part of left foot with unspecified severity Subjective Principal diagnosis: foot infection Interval history: Patient relates no significant changes from yesterday. Patient denies any nausea, vomiting, fever, chills, shortness of breath, chest pain, or calf pain. Patient relates that it smells less than it did previously. Objective - Vital Signs Vital Signs: Vital Signs Temp Pulse Resp BP Pulse Ox 11/09/17 10:36 98.1 F 61 16 162/79 98 11/09/17 07:29 98.0 F 61 16 167/82 98 11/08/17 23:25 97.6 F 58 14 164/81 98 11/08/17 21:32 97.7 F 61 18 155/84 98 11/08/17 14:11 98 F 87 16 128/79 96 Intake and Output 11/08/17 11/09/17 11/09/17 23:59 07:59 15:59 Intake Total 120 / 120 240 / 240 Output Total 520 / 520 Balance -520 / -520 120 / 120 240 / 240 Intake: IV Fluids 20 / 20 Maxipime 2,000 MG In Water for 20 / 20 inj. (sterile) 20 ML @ 300 mls/ hr IVP Q8HR CHARANJIT Rx#:[id number] Oral 100 / 100 240 / 240 Output: Urine 500 / 500 Estimated Blood Loss / 20 Other: Meal Breakfast Percent of Meal Consumed 95% # Voids 1 Blood Glucose* 105 93 106 - Exam Exam: Improved from prior exam decreased erythema and edema. Mild drainage still noted. Capillary fill time intact to the digits. No new open lesions. Incision: Present: healing - Lab Result Diagrams: 11/09/17 01:14 11/09/17 01:14 Labs: Abnormal lab results RBC 3.06 M/mcL (4.19-5.50) L 11/09/17 01:14 Hgb 10.2 g/dL (12.9-16.9) L 11/09/17 01:14 Hct 29.6 % (37.5-50.1) L 11/09/17 01:14 ESR 76 mm/hr (0-10) H 11/07/17 17:10 PT 14.6 Seconds (9.4-12.1) H 11/08/17 00:42 Potassium 3.4 mEq/L (3.5-5.1) L 11/09/17 01:14 BUN 24 mg/dL (8-23) H 11/09/17 01:14 POC Glucose 106 mg/dL (70-99) H 11/09/17 11:09 Magnesium 1.1 mg/dL (1.6-2.6) L 11/08/17 00:42 Total Bilirubin 1.3 mg/dL (0.3-1.0) H 11/08/17 00:42 AST 12 Units/L (13-39) L 11/08/17 00:42 ALT 6 Units/L (7-52) L 11/08/17 00:42 C-Reactive Protein 187 mg/L (Less than 10) H 11/07/17 17:10 Albumin/Globulin Ratio 1.0 (1.1-2.2) L 11/08/17 00:42 Microbiology, Last 48 Hours 11/08/17 10:50 Wound Culture - Preliminary Left Foot Gram Negative Jameel 11/08/17 00:42 Blood Culture - Preliminary Peripheral Venipuncture No growth. Consult Discharge Plan - Plan [facility]errals: [facility] [Primary Care Provider] -
--- NOTE | 2017-11-09 13:38 | Operative Note ---
Date of procedure: 11/08/17 Pre-op diagnosis: left foot infection Post-op diagnosis: same Procedure: Incision and drainage left foot Implants: Iodoform gauze Anesthesia: MAC Surgeon: George Bryant Was there an office assistant present: No Estimated blood loss (cc): 10 Specimen: Cultures obtained from left foot fifth metatarsal wound Condition: stable Disposition: PACU Procedure in Detail: The patient was administered IV antibiotics. The patient was transported to the operative room and placed on operating table. Following anesthesia the extremity was scrubbed prepped and draped in the usual aseptic fashion. A timeout was performed. An incision was made and deepened through subcutaneous tissue with care taken to identify and retract all vital neurovascular structures. The incision was made over the large purulent foul-smelling ulceration at the head of the fifth metatarsal. Incision was made and P relates was expressed. The purulence was noted to be in contact with the bone however no bony destruction was noted. Incision was made from the dorsal aspect of the fifth metatarsal head to the plantar aspect. Any nonviable or necrotic tissue was debrided. Approximately a 3 cm diameter portion of nonviable necrotic tissue was resected/debrided. Cultures were obtained. The debridement consisted of epidermis, dermis, subcutaneous, fascia. After adequate debridement the site was then evaluated for wound VAC placement. Due to continued drainage and maceration we will place a wound VAC at a later time. The incision site was irrigated with copious amounts of normal saline and left open with a wet-to-dry dressing. The patient tolerated the procedure and anesthesia well and was transported to the recovery room with vital signs stable and vascular status intact to both feet. The patient will remain nonweightbearing. The patient will likely need 6 weeks of IV antibiotics secondary to the infection in contact with the bone. No current osteomyelitis was noted on exam during the surgical intervention however due to the purulent foul-smelling nature of the wound and the fact the purulence was near bone and may be beneficial to have long-term antibiotics. Patient will need dressing changes daily and we will apply a wound VAC at a later time.
--- NOTE | 2017-11-09 14:58 | Internal Med Progress Note ---
Date of Encounter: 11/09/17 Time of Encounter: 16:39 - Assessment and plan (1) Foot ulcer, left Current Visit: Yes Status: Acute Assessment and plan: s/p I&D left foot 11/08: Follow-up blood and wound culture - currently growing gram neg rods; awaiting sensitivities Continue Vanc/Cefepime (PCN reaction is rash, no anaphylaxis) Await culture sensitivities Consult ID (Saturday when services available), anticipate 2-6 weeks IV antibiotics Will need PICC placement. Qualifiers: Non-pressure ulcer stage: unspecified non-pressure ulcer stage Qualified Code(s): L97.529 - Non-pressure chronic ulcer of other part of left foot with unspecified severity (2) SYDNEE (acute kidney injury) Current Visit: Yes Status: Acute Assessment and plan: Holding metformin Renally dose medications Avoid nephrotoxic medications 1.59 on admission, now improved to 1.14 (3) Parkinson disease Current Visit: Yes Status: Chronic Assessment and plan: 1. Continue home medications. 2. Follow up with PCP/Neurology as outpatient. (4) Type 2 diabetes mellitus Current Visit: Yes Status: Chronic Assessment and plan: Hold Metformin due to kidney disease. SSI Glucose currently well controlled Qualifiers: Diabetes mellitus snf insulin use: without exterminator termite use Diabetes mellitus complication status: with diabetic arthropathy Diabetes mellitus complication detail: with neuropathic arthropathy Qualified Code(s): E11.610 - Type 2 diabetes mellitus with diabetic neuropathic arthropathy (5) DVT prophylaxis Current Visit: Yes Status: Acute Assessment and plan: 1. Heparin SQ. - Time Spent With Patient Total time spent is greater than 50% in coordination of care (as documented) at patient's floor/unit and/or counseling patient: - Subjective Interval history: No complaints, no acute events. - Constitutional Vitals: Temp Pulse Resp BP Pulse Ox 98.1 F 61 16 162/79 98 11/09/17 10:36 11/09/17 10:36 11/09/17 10:36 11/09/17 10:36 11/09/17 10:36 General appearance: Present: cooperative, A&O X 3, pleasant, no acute distress, answers questions appropriately Exam: - Head Head exam: Present: normal inspection - Eye Eye exam: Present: EOMI, PERRL. Absent: scleral icterus Pupils: Present: normal accommodation - ENT ENT exam: Present: mucous membranes dry, normal exam, normal oropharynx - Neck Neck exam general surgery: Present: full ROM, supple. Absent: tenderness, nuchal rigidity, thyromegaly - Respiratory Respiratory exam: Present: CTAB. Absent: chest wall tenderness, rales, respiratory distress, rhonchi, wheezes - Cardiovascular Cardiovascular exam: Present: RRR, +S1, +S2. Absent: diastolic murmur, systolic murmur - GI/Abdominal GI/Abdominal exam: Present: normal bowel sounds, soft. Absent: hepatomegaly, mass, splenomegaly, tenderness - Extremities Exam Extremities exam: Present: full ROM, normal capillary refill, warm, radial pulses palpable and symmetrical. Absent: calf tenderness Additional comments: left foot with plantar ulceration and foul smell; surrounding cellulitis - Back Exam Back exam: Present: normal inspection. Absent: CVA tenderness (L), CVA tenderness (R) - Neurological Exam Neurological exam: Present: alert, CN II-XII intact, oriented X3 Additional comments: resting tremors; decreased sensation in feet - Psychiatric Psychiatric exam: Present: normal affect, normal mood - Skin Skin exam: Present: dry, warm Internal Medicine: Result - Labs CBC & Chem 7: 11/09/17 01:14 11/09/17 01:14 Labs: Short CBC 11/09/17 Range/Units 01:14 WBC 5.0 (4.3-11.1) K/mcL Hgb 10.2 L (12.9-16.9) g/dL Hct 29.6 L (37.5-50.1) % Plt Count 161 (140-400) K/mcL Neutrophils # 3.3 (1.6-8.9) K/mcL BMP 11/09/17 01:14 Sodium 141 Potassium 3.4 L Chloride 107 Carbon Dioxide 26 BUN 24 H Creatinine 1.14 Glucose 96 Calcium 8.6 - ABG Interpretation ABG results: PT/INR, D-dimer PT 14.6 Seconds (9.4-12.1) H 11/08/17 00:42 Consult Discharge Plan - Plan [facility]errals: [facility] [Primary Care Provider] -
[2017-11-09] MEDS: traMADol 50 MG TABLET PO PRN (15:49)
[2017-11-10] MEDS: Cefepime HCl 2,000 MG in Water for inj. (sterile) 20 ML 20 ML IVP SCH ×3 (00:09→16:42)
[2017-11-10 01:13] LABS: Basophils % 0.2 %; Eosinophils # 0.1 K/mcL (0.0-0.6); Eosinophils % 2.6 %; Hematocrit 27.3 % (37.5-50.1); Hemoglobin 9.7 g/dL (12.9-16.9); Immature Granulocytes % 0.5 % (0-4); Lymphocytes % 24.3 %; Mean Corpuscular HGB Conc 35.5 g/dL (31.6-35.5); Mean Corpuscular Hemoglobin 34.9 pg (28.0-33.3); Mean Corpuscular Volume 98.2 fL (83.0-100.0); Mean Platelet Volume 9.8 fL (9.4-12.4); Monocytes # 0.5 K/mcL (0.0-1.3); Neutrophils # 2.6 K/mcL (1.6-8.9); Platelet Count 155 K/mcL (140-400); Red Blood Count 2.78 M/mcL (4.19-5.50); Red Cell Distribution Width 12.3 % (11.5-14.5); Segmented Neutrophils % 61.4 %
[2017-11-10 01:34] LABS: Platelet Estimate Normal (Normal); Reactive Lymphocytes Present (Not Present)
[2017-11-10 01:37] LABS: BUN/Creatinine Ratio 18 (6-26); Blood Urea Nitrogen 21 mg/dL (8-23); Calcium 8.4 mg/dL (8.6-10.3); Carbon Dioxide 27 mEq/L (23-29); Chloride 107 mEq/L (98-107); Glucose 122 mg/dL (70-105); Osmolality,Calculated 292 (280-300); Potassium 3.5 mEq/L (3.5-5.1); Sodium 139 mEq/L (136-145); eGFR For African Americans > 60 (> 60); eGFR For Non-African Americans > 60 (> 60)
[2017-11-10] MEDS: *HR* Heparin 5,000 UNIT/ML VIAL SQ SCH ×2 (06:39→16:41)
[2017-11-10] MEDS: Insulin LISPRO 300 UNITS/3 ML VIAL SQ SCH ×3 (08:30→17:06)
[2017-11-10] MEDS: hydroCHLOROthiazide 25 MG TABLET PO SCH (08:31)
[2017-11-10] MEDS: diazePAM 10 MG TABLET PO SCH (08:31)
[2017-11-10] MEDS: Carbidopa/Levodopa 25/100 TABLET PO SCH ×3 (08:31→20:37)
[2017-11-10] MEDS ORDERED: Aminoglycoside Consult 1 EACH MC ONE (08:35)
[2017-11-10] MEDS: traMADol 50 MG TABLET PO PRN (09:56)
--- NOTE | 2017-11-10 17:15 | Internal Med Progress Note ---
Date of Encounter: 11/10/17 Time of Encounter: 17:12 - Assessment and plan (1) Foot ulcer, left Current Visit: Yes Status: Acute Assessment and plan: s/p I&D left foot 11/08: Blood cultures: 11/08: No growth to date Left foot cultures 11/08: growing beltran sensitive E coli. Follow-up blood and wound culture - currently growing gram neg rods; awaiting sensitivities Continue Cefepime (PCN reaction is rash, no anaphylaxis) Consult ID ([facility] services are available), anticipate 2-6 weeks IV antibiotics Will need PICC placement. Discontinue vancomycin Qualifiers: Non-pressure ulcer stage: unspecified non-pressure ulcer stage Qualified Code(s): L97.529 - Non-pressure chronic ulcer of other part of left foot with unspecified severity (2) SYDNEE (acute kidney injury) Current Visit: Yes Status: Acute Assessment and plan: Holding metformin Renally dose medications Avoid nephrotoxic medications Resolved (3) Parkinson disease Current Visit: Yes Status: Chronic Assessment and plan: 1. Continue home medications. 2. Follow up with PCP/Neurology as outpatient. (4) Type 2 diabetes mellitus Current Visit: Yes Status: Chronic Qualifiers: Diabetes mellitus roasterman insulin use: without roasterman use Diabetes mellitus complication status: with diabetic arthropathy Diabetes mellitus complication detail: with neuropathic arthropathy Qualified Code(s): E11.610 - Type 2 diabetes mellitus with diabetic neuropathic arthropathy (5) DVT prophylaxis Current Visit: Yes Status: Acute - Time Spent With Patient Total time spent is greater than 50% in coordination of care (as documented) at patient's floor/unit and/or counseling patient: - Subjective Interval history: No acute events Patient doing well - Constitutional Vitals: Temp Pulse Resp BP Pulse Ox 98 F 58 14 156/82 96 11/10/17 17:00 11/10/17 17:00 11/10/17 17:00 11/10/17 17:00 11/10/17 17:00 General appearance: Present: cooperative, A&O X 3, pleasant, no acute distress, answers questions appropriately Exam: - Head Head exam: Present: normal inspection - Eye Eye exam: Present: EOMI, PERRL. Absent: scleral icterus Pupils: Present: normal accommodation - ENT ENT exam: Present: mucous membranes dry, normal exam, normal oropharynx - Neck Neck exam general surgery: Present: full ROM, supple. Absent: tenderness, nuchal rigidity, thyromegaly - Respiratory Respiratory exam: Present: CTAB. Absent: chest wall tenderness, rales, respiratory distress, rhonchi, wheezes - Cardiovascular Cardiovascular exam: Present: RRR, +S1, +S2. Absent: diastolic murmur, systolic murmur - GI/Abdominal GI/Abdominal exam: Present: normal bowel sounds, soft. Absent: hepatomegaly, mass, splenomegaly, tenderness - Extremities Exam Extremities exam: Present: full ROM, normal capillary refill, warm, radial pulses palpable and symmetrical. Absent: calf tenderness Additional comments: left foot with plantar ulceration and foul smell; surrounding cellulitis - Back Exam Back exam: Present: normal inspection. Absent: CVA tenderness (L), CVA tenderness (R) - Neurological Exam Neurological exam: Present: alert, CN II-XII intact, oriented X3 Additional comments: resting tremors; decreased sensation in feet - Psychiatric Psychiatric exam: Present: normal affect, normal mood - Skin Skin exam: Present: dry, warm Internal Medicine: Result - Labs CBC & Chem 7: 11/10/17 00:54 11/10/17 00:54 Labs: Short CBC 11/10/17 Range/Units 00:54 WBC 4.2 L (4.3-11.1) K/mcL Hgb 9.7 L (12.9-16.9) g/dL Hct 27.3 L (37.5-50.1) % Plt Count 155 (140-400) K/mcL Neutrophils # 2.6 (1.6-8.9) K/mcL BMP 11/10/17 00:54 Sodium 139 Potassium 3.5 Chloride 107 Carbon Dioxide 27 BUN 21 Creatinine 1.19 Glucose 122 H Calcium 8.4 L - ABG Interpretation ABG results: PT/INR, D-dimer PT 14.6 Seconds (9.4-12.1) H 11/08/17 00:42 Consult Discharge Plan - Plan [facility]: [facility] [Primary Care Provider] -
--- NOTE | 2017-11-10 22:50 | Podiatry Progress Note ---
Date of Encounter: 11/10/17 Time of Encounter: 22:48 - Assessment and Plan (1) Foot ulcer, left Current Visit: Yes Status: Acute Due to the location of the purulence and its close contact with the bone the patient will likely need at least 2-6 weeks of IV antibiotics managed by infectious disease. We will wait for the cultures to return. Patient will need to remain nonweightbearing or partial weightbearing to the left heel. Patient will need daily dressing changes. Qualifiers: Non-pressure ulcer stage: unspecified non-pressure ulcer stage Qualified Code(s): L97.529 - Non-pressure chronic ulcer of other part of left foot with unspecified severity Subjective Principal diagnosis: foot infection Interval history: Patient relates mild improvement regarding from yesterday. Patient denies any nausea, vomiting, fever, chills, shortness of breath, chest pain, or calf pain. Patient relates that it smells less than it did previously. Objective - Vital Signs Vital Signs: Vital Signs Temp Pulse Resp BP Pulse Ox 11/10/17 19:15 98.0 F 59 14 148/84 98 11/10/17 17:00 98 F 58 14 156/82 96 11/10/17 11:37 97.7 F 55 14 138/83 98 11/10/17 08:30 65 11/10/17 06:31 97.6 F 55 16 148/83 98 11/10/17 05:26 98.0 F 56 12 132/71 98 11/10/17 00:39 97.8 F 56 14 132/72 97 Intake and Output 11/10/17 11/10/17 11/10/17 07:59 15:59 23:59 Intake Total 320 / 320 750 / 750 260 / 260 Balance 320 / 320 750 / 750 260 / 260 Intake: IV Fluids 20 / 20 270 / 270 20 / 20 Maxipime 2,000 MG In Water for 20 / 20 20 / 20 20 / 20 inj. (sterile) 20 ML @ 300 mls/ hr IVP Q8HR [facility]ANJIT Rx#:[id number] Vancocin 1,250 MG In 0.9 % 250 / 250 Sodium Chloride 250 ML @ 166.67 mls/hr IVPB Q24H [facility]ANJ[facility] Rx#: [id number] Oral 300 / 300 480 / 480 240 / 240 Other: Meal Lunch Dinner Percent of Meal Consumed 100% 100% # Voids 2 1 Blood Glucose* 109 109 142 - Exam Exam: Wound VAC and intact. Capillary fill time is intact to the digits. There are no new open lesions, abrasions, or ulcerations. Sensation decreased consistent with peripheral neuropathy. Labs have returned demonstrating Escherichia coli present and the site. - Lab Result Diagrams: 11/10/17 00:54 11/10/17 00:54 Labs: Abnormal lab results WBC 4.2 K/mcL (4.3-11.1) L 11/10/17 00:54 RBC 2.78 M/mcL (4.19-5.50) L 11/10/17 00:54 Hgb 9.7 g/dL (12.9-16.9) L 11/10/17 00:54 Hct 27.3 % (37.5-50.1) L 11/10/17 00:54 MCH 34.9 pg (28.0-33.3) H 11/10/17 00:54 Reactive Lymphocytes Present (Not Present) A 11/10/17 00:54 ESR 76 mm/hr (0-10) H 11/07/17 17:10 PT 14.6 Seconds (9.4-12.1) H 11/08/17 00:42 Glucose 122 mg/dL (70-105) H 11/10/17 00:54 POC Glucose 115 mg/dL (70-99) H 11/09/17 20:34 Calcium 8.4 mg/dL (8.6-10.3) L 11/10/17 00:54 Magnesium 1.1 mg/dL (1.6-2.6) L 11/08/17 00:42 Total Bilirubin 1.3 mg/dL (0.3-1.0) H 11/08/17 00:42 AST 12 Units/L (13-39) L 11/08/17 00:42 ALT 6 Units/L (7-52) L 11/08/17 00:42 C-Reactive Protein 76 mg/L (Less than 10) H 11/10/17 00:54 Albumin/Globulin Ratio 1.0 (1.1-2.2) L 11/08/17 00:42 Vancomycin Trough 12 mcg/mL (5-10) H 11/10/17 04:53 Microbiology, Last 48 Hours 11/08/17 10:50 Wound Culture - Final Left Foot Escherichia coli 11/08/17 00:42 Blood Culture - Preliminary Peripheral Venipuncture No growth. Consult Discharge Plan - Plan [facility]errals: [facility] [Primary Care Provider] -
[2017-11-11] MEDS: Cefepime HCl 2,000 MG in Water for inj. (sterile) 20 ML 20 ML IVP SCH ×3 (00:36→16:12)
[2017-11-11 01:15] LABS: Basophils % 0.2 %; Eosinophils # 0.1 K/mcL (0.0-0.6); Eosinophils % 1.9 %; Hematocrit 27.8 % (37.5-50.1); Hemoglobin 9.9 g/dL (12.9-16.9); Immature Granulocytes % 0.6 % (0-4); Lymphocytes % 19.3 %; Mean Corpuscular HGB Conc 35.6 g/dL (31.6-35.5); Mean Corpuscular Hemoglobin 34.9 pg (28.0-33.3); Mean Corpuscular Volume 97.9 fL (83.0-100.0); Mean Platelet Volume 9.9 fL (9.4-12.4); Monocytes # 0.5 K/mcL (0.0-1.3); Monocytes % 9.9 %; Platelet Count 164 K/mcL (140-400); Red Blood Count 2.84 M/mcL (4.19-5.50); Red Cell Distribution Width 12.3 % (11.5-14.5); Segmented Neutrophils % 68.1 %
[2017-11-11 01:36] LABS: BUN/Creatinine Ratio 17 (6-26); Blood Urea Nitrogen 21 mg/dL (8-23); Calcium 8.7 mg/dL (8.6-10.3); Carbon Dioxide 27 mEq/L (23-29); Chloride 107 mEq/L (98-107); Glucose 114 mg/dL (70-105); Osmolality,Calculated 294 (280-300); Potassium 3.5 mEq/L (3.5-5.1); Sodium 140 mEq/L (136-145); eGFR For African Americans > 60 (> 60); eGFR For Non-African Americans 59 (> 60)
[2017-11-11 01:43] LABS: Neutrophils # 3.5 K/mcL (1.6-8.9)
[2017-11-11 01:45] LABS: Platelet Estimate Normal (Normal)
--- NOTE | 2017-11-11 05:44 | Electrocardiograph Report ---
[address] [address] Test Date: 2017-11-07 Pat Name: Raciel Georges Department: 103 Room: [facility] Gender: M Sales Assistant: EKP : [id number] Requested By: Celio Wang Order Number: [id number] Reading MD: Yousif Jeter Measurements Intervals [place] Rate: 77 P: 23 RI: 211 QRS: 7 QRSD: 154 T: -16 QT: 415 QTc: 447 Interpretive Statements SINUS RHYTHM WITH FIRST DEGREE AV BLOCK RIGHT BUNDLE BRANCH BLOCK BASELINE ARTIFACT Electronically Signed On 11-11-2017 5:42:40 EDT by Yousif Jeter
[2017-11-11] MEDS: *HR* Heparin 5,000 UNIT/ML VIAL SQ SCH ×2 (06:26→16:12)
[2017-11-11] MEDS: Insulin LISPRO 300 UNITS/3 ML VIAL SQ SCH ×3 (07:54→16:28)
[2017-11-11] MEDS: diazePAM 10 MG TABLET PO SCH (08:02)
[2017-11-11] MEDS: hydroCHLOROthiazide 25 MG TABLET PO SCH (08:02)
[2017-11-11] MEDS: Carbidopa/Levodopa 25/100 TABLET PO SCH ×3 (08:02→20:56)
[2017-11-11] MEDS ORDERED: Lidocaine -MPF 1% 5 ML AMPUL INFILT ONE (08:28)
--- NOTE | 2017-11-11 08:37 | Internal Med Progress Note ---
Date of Encounter: 11/11/17 Time of Encounter: 08:35 - Assessment and plan (1) Foot ulcer, left Current Visit: Yes Status: Acute Assessment and plan: s/p I&D left foot 11/08: Blood cultures: 11/08: No growth to date Left foot cultures 11/08: growing beltran sensitive E coli. Anticipate 2-6 weeks IV antibiotics given proximity of infection to bone. Appreciated ID recommendations on this ID PICC to be placed today. Qualifiers: Non-pressure ulcer stage: unspecified non-pressure ulcer stage Qualified Code(s): L97.529 - Non-pressure chronic ulcer of other part of left foot with unspecified severity (2) SYDNEE (acute kidney injury) Current Visit: Yes Status: Acute Assessment and plan: Holding metformin Renally dose medications Avoid nephrotoxic medications Has resolved. (3) Parkinson disease Current Visit: Yes Status: Chronic Assessment and plan: Continue home medications (4) Type 2 diabetes mellitus Current Visit: Yes Status: Chronic Assessment and plan: Hold Metformin SSI Goal glucose <180, patient under control currently Qualifiers: Diabetes mellitus veterinary virologist insulin use: without retirement use Diabetes mellitus complication status: with diabetic arthropathy Diabetes mellitus complication detail: with neuropathic arthropathy Qualified Code(s): E11.610 - Type 2 diabetes mellitus with diabetic neuropathic arthropathy (5) DVT prophylaxis Current Visit: Yes Status: Acute Assessment and plan: eparin SQ 5,000 BID - Time Spent With Patient Total time spent is greater than 50% in coordination of care (as documented) at patient's floor/unit and/or counseling patient: - Subjective Interval history: No acute events, No complaints Foot feels at baseline for patient Denies fevers/chills. - Constitutional Vitals: Temp Pulse Resp BP Pulse Ox 98.9 F 63 18 156/75 95 11/11/17 06:37 11/11/17 06:37 11/11/17 06:37 11/11/17 06:37 11/11/17 06:37 General appearance: Present: cooperative, A&O X 3, pleasant, no acute distress, answers questions appropriately Exam: - Head Head exam: Present: normal inspection - Eye Eye exam: Present: EOMI, PERRL. Absent: scleral icterus Pupils: Present: normal accommodation - ENT ENT exam: Present: mucous membranes dry, normal exam, normal oropharynx - Neck Neck exam general surgery: Present: full ROM, supple. Absent: tenderness, nuchal rigidity, thyromegaly - Respiratory Respiratory exam: Present: CTAB. Absent: chest wall tenderness, rales, respiratory distress, rhonchi, wheezes - Cardiovascular Cardiovascular exam: Present: RRR, +S1, +S2. Absent: diastolic murmur, systolic murmur - GI/Abdominal GI/Abdominal exam: Present: normal bowel sounds, soft. Absent: hepatomegaly, mass, splenomegaly, tenderness - Extremities Exam Extremities exam: Present: full ROM, normal capillary refill, warm, radial pulses palpable and symmetrical. Absent: calf tenderness Additional comments: left foot with plantar ulceration; surrounding erythema improved. Foul odor improved Wound vac in place, minimal drainage noted. - Back Exam Back exam: Present: normal inspection. Absent: CVA tenderness (L), CVA tenderness (R) - Neurological Exam Neurological exam: Present: alert, CN II-XII intact, oriented X3 Additional comments: resting tremors; decreased sensation in feet unchanged since prior exam - Psychiatric Psychiatric exam: Present: normal affect, normal mood - Skin Skin exam: Present: dry, warm Internal Medicine: Result - Labs CBC & Chem 7: 11/11/17 00:48 11/11/17 00:48 Labs: Short CBC 11/11/17 Range/Units 00:48 WBC 5.2 (4.3-11.1) K/mcL Hgb 9.9 L (12.9-16.9) g/dL Hct 27.8 L (37.5-50.1) % Plt Count 164 (140-400) K/mcL Neutrophils # 3.5 (1.6-8.9) K/mcL BMP 11/11/17 00:48 Sodium 140 Potassium 3.5 Chloride 107 Carbon Dioxide 27 BUN 21 Creatinine 1.21 Glucose 114 H Calcium 8.7 - ABG Interpretation ABG results: PT/INR, D-dimer PT 14.6 Seconds (9.4-12.1) H 11/08/17 00:42 Consult Discharge Plan - Plan [facility]errals: [facility] [Primary Care Provider] -
--- NOTE | 2017-11-11 10:58 | Infectious Disease Consult ---
Date of Encounter: 11/11/17 Time of Encounter: 10:56 Assessment and Plan (1) Foot infection Status: Acute Assessment and plan: Location: Left lateral foot. Secondary to diabetic foot ulcer. Causative organism: E. coli. Superficial wound culture positive for E. coli. Intra-op cultures show GNR. CT of the left foot showed a large soft tissue ulceration overying the 5th MTP joint without osteomyelitis or abscess. No sepsis criteria noted on admission. Blood cultures obtained 11/07/17 x 1 set and 11/08/17 x 1 set are NGTD. Podiatry consulted and following. Status post left foot I & D 11/08/[address] Bryant. Operative note reviewed. Gross purulence noted to be in contact with the bone, but no evidence of bone changes noted. Intra-op cultures positive for GNR. Pathology pending. Pre-op ESR 76, CRP 187. Post-op CRP improved to 76. Wound care and activity restrictions per the podiatry team. Continue Cefepime 2 grams, but decrease frequency to Q12H. Has a documented allergy to PCN, but seems to be tolerating Cefepime without a problem. Start flagyl 500mg PO TID until anaerobic cultures finalize. If negative, can discontinue. Discontinue Vancomycin. Duration of treatment depends on the clinical picture, but likely 4-6 weeks of IV antibiotics due to the presence of pus in contact with the bone. Monitor renal function and dose-adjust antibiotics. Consult VAT prior to discharge for IV line placement. banking services advisor to assist with discharge planning. (2) Foot ulcer, left Status: Acute Assessment and plan: Etiology unclear. Patient denies known trauma or how the ulcer started. Location: Lateral aspect of the left foot. Podiatry consulted and following. Wound care per the podiatry team. Qualifiers: Non-pressure ulcer stage: unspecified non-pressure ulcer stage Qualified Code(s): L97.529 - Non-pressure chronic ulcer of other part of left foot with unspecified severity (3) SYDNEE (acute kidney injury) Status: Acute Assessment and plan: Likely secondary to infection. Resolved. Continue to trend. Dose-adjust antibiotics. Avoid nephrotoxins as able. (4) Parkinson disease Status: Chronic (5) Type 2 diabetes mellitus Status: Chronic Assessment and plan: Controlled. HgbA1C 5.4%. Recommend aggressive glucose monitoring and control to promote wound healing and prevent re-infection. Management per the primary team. Qualifiers: Diabetes mellitus senior care insulin use: without senior care use Diabetes mellitus complication status: with diabetic arthropathy Diabetes mellitus complication detail: with neuropathic arthropathy Qualified Code(s): E11.610 - Type 2 diabetes mellitus with diabetic neuropathic arthropathy (6) Alcohol use Status: Chronic Assessment and plan: Patient reports daily ETOH use. Discussed with nursing. Consider CIWA protocol. Management per the primary team. Infectious Disease HPI - Data of Consult Patient: new to practice Consult date: 11/11/17 Requesting Physician: Antolin Guallpa CNP [facility] Provider[facility] - Consult Narrative Reason for consult: Left foot infection History of present illness: Mr. Georges is a 72 year old male with a past medical history of hypertension, hyperlipidemia, Parkinson's disease, and diabetes diagnosed several years ago currently on oral anti-hyperglycemics. The patient was admitted to the hospital November 07 for acute kidney injury and left foot infection. We are consult November 11 for further recommendations for left foot infection. Briefly, the patient's a 72-year-old male with past medical history as stated above. The patient presented to the emergency department from the [place] urgent care for evaluation of a left foot infection. Apparently, the patient had had an ulceration of unknown etiology to the lateral aspect of the left foot for about a month prior to presentation. He noticed that his foot was more swollen and red so he went to his primary care doctor who advised him to go to the urgent care at the [place] who then subsequently advised him to come to the ER here. Upon arrival to the ER, the patient was afebrile and hemodynamically stable. His laboratory studies revealed a normal white blood cell count with an acute kidney injury. His ESR was elevated at 76 with a CRP of 187. He had blood cultures obtained 1 set as well as a CT of the left foot that showed a large ulceration overlying the lateral aspect of the fifth metatarsal joint. There is no evidence of osteomyelitis or abscess. He was started empirically on IV vancomycin, cefepime, and clindamycin and admitted to the hospital for further evaluation. Since admission, the patient has remained afebrile and hemodynamically stable. His white blood cell count has remained normal. His acute kidney injury has resolved. He was evaluated by podiatry was taken to the operating room on November 08 and underwent an I&D of the left foot. Review of the operative note revealed that there was a fair amount of purulence noted that was in direct contact with the bone, but no bone changes indicative of osteomyelitis. A superficial wound culture obtained prior to surgery is positive for pansensitive Escherichia coli. Intraoperative cultures are pending, but the Gram stain is positive for gram-negative rods. Specimens were sent for pathology and are pending. The patient is currently on IV vancomycin and IV cefepime. We have been asked to evaluate and make further recommendations. During my exam today, the patient endorses a history as stated above. He denies any fevers or chills or rigors. He denies any headache or neck pain or dizziness. He denies any earache or sore throat or nasal discharge, but does report some nonspecific nasal congestion. He denies any chest pain, shortness of breath, or cough. He denies any nausea, diarrhea, or constipation. He denies any urinary complaints, abdominal pain, or appetite changes. He denies any joint or back pain. He denies any pain at the site of the infection due to peripheral neuropathy. He states that the site was red and inflamed and swollen. He reports some purulent discharge with a foul odor. He states he is unsure what originally called the ulceration, but denies any known trauma. He states he was applying some type of salve at home, but experienced worsening of the site so he saw his PCP. He denies any oral thrush or new skin lesions. The patient lives at home with his . He is a retired public safety police. He reports daily alcohol use of about 3 vodka drinks. He denies any drug use or tobacco use. He denies any recent travel outside the [facility]. He does have several cats in the house and cleaning the letter box daily, but denies any known contact between the surgical site and the cats. CC: Antolin Gualpla, YAW Past Med Surg Social Fam HX - Past Medical History Attestation: Yes The following information was validated with the patient. Source: patient, old records reviewed, nursing notes reviewed Medical history: diabetes (Oral medications), hyperlipidemia, hypertension Psychiatric history: no psych history - Past Surgical History Surgical History: no surgical history - Social History Smoking Status: Never smoker Smokeless Tobacco Status: No Alcohol use: heavy (Drinks vodka daily.) Drug use: none Occupational status: retired Current living situation: Home, With Family Activity Level: Independent ambulation Recent Out of Country Travel Within the Last 8 Weeks: No Exposure or Possible Exposure to Illness During Travel: No - Family History Father Living Status: Hx Family Cancer: Yes (stomach) Infectious Disease-CN:Meds Carbidopa/Levodopa [Carbidopa-Levodopa 25-100 Tab] 1 tab PO TID 11/07/17 [ History] Metoprolol [Lopressor] 25 mg PO BID 11/07/17 [History] Simvastatin [Zocor] 20 mg PO HS 11/07/17 [History] diazePAM [Valium] 10 mg PO DAILY 11/07/17 [History] hydroCHLOROthiazide [Hydrochlorothiazide] 25 mg PO DAILY 11/07/17 [History] metFORMIN [Glucophage] 500 mg PO BIDWM 11/07/17 [History] 3 Allergy/AdvReac Type Severity Reaction Status Date / Time Penicillins [PCN] Allergy Rash Verified 11/07/17 17:32 All systems: reviewed and no additional remarkable complaints except as stated Exam - Constitutional Vitals: Temp Pulse Resp BP Pulse Ox 98.9 F 63 18 156/75 95 11/11/17 06:37 11/11/17 06:37 11/11/17 06:37 11/11/17 06:37 11/11/17 06:37 General appearance: average body habitus, cooperative, no acute distress - Head Head exam: Present: atraumatic, normal inspection, normocephalic - Eye Eye exam: Present: EOMI, normal appearance, PERRL Pupils: Present: normal accommodation - ENT ENT exam: Present: mucous membranes moist - Neck Neck exam: Present: normal inspection - Respiratory Respiratory exam: Present: CTAB. Absent: rales, respiratory distress, rhonchi, wheezes - Cardiovascular Cardiovascular exam: Present: RRR, +S1, +S2 - GI/Abdominal GI/Abdominal exam: Present: normal bowel sounds, soft. Absent: distended, tenderness - Extremities Exam Extremities exam: Present: joint swelling (Left ankle), pedal edema (2+ LLE). Absent: tenderness Additional comments: Wound VAC noted to the lateral aspect of the left foot with sponge well- compressed and transparent dressing intact. Overlying guaze dressing C/D/I. Scant serosanguinous drainage noted in the canister. Mild erythema noted to the 5th toe. + PMS to the distal extremities x 4. Diminished sensation noted to the bilateral toes. - Neurological Exam Neurological exam: Present: alert, oriented X3, no focal deficits Additional comments: Tremor noted to the RUE. - Psychiatric Psychiatric exam: Present: normal affect, normal mood - Skin Skin exam: Present: dry, intact, normal color, warm Infectious Disease CN: Results - Labs CBC & Chem 7: 11/11/17 00:48 11/11/17 00:48 Cultures: Cultures 11/08/17 21:55 Wound Culture - Preliminary Left Foot Gram Negative Jameel 11/08/17 21:55 Anaerobic Culture - Preliminary Left Foot At this time, no anaerobic growth is present. The culture will be finalized after 5 days of incubation. 11/08/17 10:50 Wound Culture - Final Left Foot Escherichia coli 11/08/17 00:42 Blood Culture - Preliminary Peripheral Venipuncture No growth. Consult Discharge Plan - Plan [facility]errals: [facility] [Primary Care Provider] - - Attending Attestation I examined this patient and my medical decision-making was reviewed with the Resident Physician. I agree with the documented findings, disposition and treatment plan as described except to the extent set forth below. This is an addendum to original report dictated by Daphne Rivera CNP. Please refer to Latisha coles for full detail. Patient is a 72-year-old gentleman with past medical history mentioned below including hypertension, hyperlipidemia, Parkinsons disease and diabetes mellitus type 2 on oral anti-hyperglycemics admitted on November 07 for acute kidney injury and left foot infection. Patient on admission was afebrile and his WBC was within normal. Patient was evaluated by podiatry was taken to the operating room on November 08 where he underwent I&D of the left foot. Intra-Op revealed fair amount of purulence noted dialysis adjacent on touching the bone. Intra-Op cultures appears to be gram-negative rods and maybe some anaerobes. Previous cultures were Escherichia coli that was pansensitive. Currently patient is sitting in bed appears comfortable no acute distress. is at bedside. Physical exam is unremarkable other for what mentioned in history of present illness. Assessment and plan Foot infection Foot ulcer left Acute kidney injury Parkinsons disease Diabetes mellitus type 2 Recommendation: Based on culture results, I agree with stopping vancomycin. We will start Flagyl until cultures finalize Continue cefepime for now dose adjust based on creatinine clearance, we switched to Rocephin if cultures did not reveal any Pseudomonas Duration of treatment 4-6 weeks Patient needs a PICC line placement Monitor labs and for drug toxicity
--- NOTE | 2017-11-11 16:01 | Podiatry Progress Note ---
Date of Encounter: 11/12/17 Time of Encounter: 12:50 - Assessment and Plan (1) Foot ulcer, left Current Visit: Yes Status: Acute S/p I&D left foot by Dr. Bryant on 11/08/17. WBC: 5.2 Microbiology 11/08/17 21:55 Left Foot Wound Culture - Final Escherichia coli 11/08/17 10:50 Left Foot Wound Culture - Final Escherichia coli Plan: Patient will require wound vac post discharge. Dressing changed every M-W-F. Dressing due to be changed on 11/13/17. Wound vac: Cleanse ulcer with saline, pat dry, appy Allkare skin barrier prep pads to surrounding skin with drape, appy small black simplace wound vac sponge , connect to low continuous suction at 125 mmhg. Change every M-W-. Infectious Disease consulted for antibiotic therapy. tangled yarn worker for discharge planning-wound vac. Wound vac paperwork completed. Remain non weight bearing or partial weight bearing to left heel. Qualifiers: Non-pressure ulcer stage: unspecified non-pressure ulcer stage Qualified Code(s): L97.529 - Non-pressure chronic ulcer of other part of left foot with unspecified severity (2) Type 2 diabetes mellitus Current Visit: Yes Status: Chronic Qualifiers: Diabetes mellitus termite technician insulin use: without termite technician use Diabetes mellitus complication status: with skin complications Diabetes mellitus complication detail: with foot ulcer Qualified Code(s): E11.621 - Type 2 diabetes mellitus with foot ulcer; L97.509 - Non-pressure chronic ulcer of other part of unspecified foot with unspecified severity (3) Foot infection Current Visit: Yes Status: Acute Subjective Principal diagnosis: foot infection Interval history: Patient is s/p I&D of left by Dr. Bryant on 11/08/17. Patient is sitting up in bed with spouse at bedside. Patient denies any pain, fever or chills overnight. Patient has a wound vac intact to the left foot and connected to 125 mmhg low continuous suction. Objective - Vital Signs Vital Signs: Vital Signs Temp Pulse Resp BP Pulse Ox 11/11/17 15:22 98.9 F 64 18 171/80 97 11/11/17 11:08 98.6 F 60 18 139/73 96 11/11/17 06:37 98.9 F 63 18 156/75 95 11/11/17 05:16 98.0 F 57 14 129/78 97 11/11/17 01:16 98.3 F 55 12 155/78 97 11/10/17 19:15 98.0 F 59 14 148/84 98 11/10/17 17:00 98 F 58 14 156/82 96 Intake and Output 11/10/17 11/11/17 11/11/17 23:59 07:59 15:59 Intake Total 260 / 260 20 / 20 260 / 260 Balance 260 / 260 20 / 20 260 / 260 Intake: IV Fluids 20 / 20 20 / 20 20 / 20 Maxipime 2,000 MG In Water for 20 / 20 20 / 20 20 / 20 inj. (sterile) 20 ML @ 300 mls/ hr IVP Q8HR CHARANJIT Rx#:[id number] Oral 240 / 240 240 / 240 Other: Meal Dinner Lunch Percent of Meal Consumed 100% 100% # Voids 1 3 Blood Glucose* 142 140 154 - Exam Exam: General appearance: alert awake oriented X 3. Calm and pleasant, no acute distress.. Vascular: Left foot: No evidence of cyanosis, pallor or rubor, Edema graded at 1 +/4, Skin Temperature warm, No calf pain with manual compression. capillary refill time is immediate to digits. Neurologic: Sensation intact with light touch to foot. . Postop Exam: S/P small black simplace wound vac sponge intact to the lateral aspect of the left foot at the 5th metatarsal head, light periwound erythema, no streaking. 15 mls of sersanguineous drainage observed to canister - Lab Result Diagrams: 11/12/17 01:34 11/12/17 01:34 Labs: Abnormal lab results RBC 2.84 M/mcL (4.19-5.50) L 11/11/17 00:48 Hgb 9.9 g/dL (12.9-16.9) L 11/11/17 00:48 Hct 27.8 % (37.5-50.1) L 11/11/17 00:48 MCH 34.9 pg (28.0-33.3) H 11/11/17 00:48 MCHC 35.6 g/dL (31.6-35.5) H 11/11/17 00:48 Reactive Lymphocytes Present (Not Present) A 11/10/17 00:54 ESR 76 mm/hr (0-10) H 11/07/17 17:10 PT 14.6 Seconds (9.4-12.1) H 11/08/17 00:42 Est GFR (Non-Af Amer) 59 (> 60) L 11/11/17 00:48 Glucose 114 mg/dL (70-105) H 11/11/17 00:48 POC Glucose 154 mg/dL (70-99) H 11/11/17 11:10 Magnesium 1.1 mg/dL (1.6-2.6) L 11/08/17 00:42 Total Bilirubin 1.3 mg/dL (0.3-1.0) H 11/08/17 00:42 AST 12 Units/L (13-39) L 11/08/17 00:42 ALT 6 Units/L (7-52) L 11/08/17 00:42 C-Reactive Protein 76 mg/L (Less than 10) H 11/10/17 00:54 Albumin/Globulin Ratio 1.0 (1.1-2.2) L 11/08/17 00:42 Vancomycin Trough 12 mcg/mL (5-10) H 11/10/17 04:53 Microbiology, Last 48 Hours 11/08/17 21:55 Wound Culture - Final Left Foot Escherichia coli 11/08/17 21:55 Anaerobic Culture - Preliminary Left Foot At this time, no anaerobic growth is present. The culture will be finalized after 5 days of incubation. 11/08/17 10:50 Wound Culture - Final Left Foot Escherichia coli Consult Discharge Plan - Plan Instructions: Metronidazole (By mouth), Ceftriaxone (Injection) Additional Instructions: F/up with PCP in 1-2 weeks F/up with Podiatry as scheduled Referrals: Daphne Rivera, PATIENT SUPPORT REPRESENTATIVE [Advanced Practice Nurse] - 11/26/17 9:00 am [facility]PC[facility] Care Provider[facility] - Prescriptions: cefTRIAXone [Rocephin] 2,000 mg IVPB DAILY #37 vial metroNIDAZOLE [Flagyl] 500 mg PO TID #42 tablet
[2017-11-12 02:18] LABS: Basophils % 0.2 %; Eosinophils # 0.1 K/mcL (0.0-0.6); Eosinophils % 1.4 %; Hematocrit 28.3 % (37.5-50.1); Immature Granulocytes % 0.6 % (0-4); Lymphocytes # 1.2 K/mcL (0.6-4.6); Lymphocytes % 17.9 %; Mean Corpuscular HGB Conc 35.3 g/dL (31.6-35.5); Mean Corpuscular Hemoglobin 34.4 pg (28.0-33.3); Mean Corpuscular Volume 97.3 fL (83.0-100.0); Mean Platelet Volume 10.1 fL (9.4-12.4); Monocytes # 0.8 K/mcL (0.0-1.3); Monocytes % 12.3 %; Neutrophils # 4.5 K/mcL (1.6-8.9); Platelet Count 178 K/mcL (140-400); Red Blood Count 2.91 M/mcL (4.19-5.50); Red Cell Distribution Width 12.3 % (11.5-14.5); Segmented Neutrophils % 67.6 %
[2017-11-12 02:43] LABS: BUN/Creatinine Ratio 16 (6-26); Blood Urea Nitrogen 21 mg/dL (8-23); Calcium 9.2 mg/dL (8.6-10.3); Carbon Dioxide 27 mEq/L (23-29); Chloride 104 mEq/L (98-107); Glucose 113 mg/dL (70-105); Osmolality,Calculated 290 (280-300); Potassium 3.2 mEq/L (3.5-5.1); Sodium 138 mEq/L (136-145); eGFR For African Americans > 60 (> 60); eGFR For Non-African Americans 53 (> 60)
[2017-11-12] MEDS: Cefepime HCl 2,000 MG in Water for inj. (sterile) 20 ML 20 ML IVP SCH (04:52)
[2017-11-12] MEDS: *HR* Heparin 5,000 UNIT/ML VIAL SQ SCH (04:52)
[2017-11-12] MEDS: Insulin LISPRO 300 UNITS/3 ML VIAL SQ SCH ×2 (07:46→11:44)
[2017-11-12] MEDS: hydroCHLOROthiazide 25 MG TABLET PO SCH (08:19)
[2017-11-12] MEDS: Carbidopa/Levodopa 25/100 TABLET PO SCH ×2 (08:19→15:28)
[2017-11-12] MEDS: diazePAM 10 MG TABLET PO SCH (08:19)
--- NOTE | 2017-11-12 09:49 | Infectious Disease Progress No ---
Date of Encounter: 11/12/17 Time of Encounter: 09:46 - Assessment and Plan (1) Foot infection Current Visit: Yes Status: Acute Location: Left lateral foot. Secondary to diabetic foot ulcer. Causative organism: E. coli. CT of the left foot showed a large soft tissue ulceration overying the 5th MTP joint without osteomyelitis or abscess. No sepsis criteria noted on admission. Blood cultures obtained 11/07/17 x 1 set are negative and 11/08/17 x 1 set are NGTD. Podiatry consulted and following. Status post left foot I & D 11/08/[address] Bryant. Operative note reviewed. Gross purulence noted to be in contact with the bone, but no evidence of bone changes noted. Intra-op cultures positive for E. coli. Pre-op ESR 76, CRP 187. Post-op CRP improved to 76. Wound care and activity restrictions per the podiatry team. Discontinue Cefepime. Start Rocephin 2 grams IV daily. Continiue flagyl 500mg PO TID until anaerobic cultures finalize. Recommend continuing until seen by ID in the office. Patient advised that he cannot drink ETOH while taking flagyl. Duration of treatment depends on the clinical picture, but likely 4-6 weeks of IV antibiotics due to the presence of pus in contact with the bone. Monitor renal function and dose-adjust antibiotics. Consult VAT prior to discharge for IV line placement. financial services rep to assist with discharge planning. Will need weekly CBC, BUN/Cr, ESR, and CRP every Saturday. Will need weekly IV care per protocol. Follow up with ID 11/26/17 at 0900. (2) Foot ulcer, left Current Visit: Yes Status: Acute Etiology unclear. Patient denies known trauma or how the ulcer started. Location: Lateral aspect of the left foot. Podiatry consulted and following. Wound care per the podiatry team. Qualifiers: Non-pressure ulcer stage: unspecified non-pressure ulcer stage Qualified Code(s): L97.529 - Non-pressure chronic ulcer of other part of left foot with unspecified severity (3) SYDNEE (acute kidney injury) Current Visit: Yes Status: Acute Likely secondary to infection. Serum creatinine back up a little this morning. Continue to trend. Dose-adjust antibiotics. Avoid nephrotoxins as able. (4) Parkinson disease Current Visit: Yes Status: Chronic (5) Type 2 diabetes mellitus Current Visit: Yes Status: Chronic Controlled. HgbA1C 5.4%. Recommend aggressive glucose monitoring and control to promote wound healing and prevent re-infection. Management per the primary team. Qualifiers: Diabetes mellitus custodial insulin use: without serology teacher use Diabetes mellitus complication status: with diabetic arthropathy Diabetes mellitus complication detail: with neuropathic arthropathy Qualified Code(s): E11.610 - Type 2 diabetes mellitus with diabetic neuropathic arthropathy (6) Alcohol use Current Visit: Yes Status: Chronic Patient reports daily ETOH use. Discussed with nursing. Consider CIWA protocol. Management per the primary team. - Subjective Interval history: Patient seen and examined. No acute events noted overnight. Patient states overall he feels well and wants to go home. Denies fevers, chills, or rigors. Denies chest pain, shortness of breath, or cough. Denies any nausea, vomiting, diarrhea, or constipation. Reports last bowel movement was 2 days ago. Denies abdominal pain or urinary complaints. States his appetite is good. Blood sugars appear to be well controlled. Denies pain at the surgical site. States edema has improved. Denies any oral thrush or new skin lesions. Infect Dis PN-Objective Data - Labs CBC & Chem 7: 11/12/17 01:34 11/12/17 01:34 Labs: Laboratory Results - last 24 hr 11/10/17 11/10/17 11/10/17 07:25 11:39 17:02 WBC RBC Hgb Hct MCV MCH MCHC RDW Plt Count MPV Immature Gran % Seg Neutrophils % Lymphocytes % Monocytes % Eosinophils % Basophils % Neutrophils # Lymphocytes # Monocytes # Eosinophils # Basophils # Sodium Potassium Chloride Carbon Dioxide BUN Creatinine Est GFR ( Amer) Est GFR (Non-Af Amer) BUN/Creatinine Ratio Glucose POC Glucose 109 H 109 H 115 H Calculated Osmolality Calcium 11/10/17 11/11/17 11/11/17 20:27 11:10 16:16 WBC RBC Hgb Hct MCV MCH MCHC RDW Plt Count MPV Immature Gran % Seg Neutrophils % Lymphocytes % Monocytes % Eosinophils % Basophils % Neutrophils # Lymphocytes # Monocytes # Eosinophils # Basophils # Sodium Potassium Chloride Carbon Dioxide BUN Creatinine Est GFR ( Amer) Est GFR (Non-Af Amer) BUN/Creatinine Ratio Glucose POC Glucose 142 H 154 H 121 H Calculated Osmolality Calcium 11/11/17 11/12/17 11/12/17 19:06 01:34 01:34 WBC 6.6 RBC 2.91 L Hgb 10.0 L Hct 28.3 L MCV 97.3 MCH 34.4 H MCHC 35.3 RDW 12.3 Plt Count 178 MPV 10.1 Immature Gran % 0.6 Seg Neutrophils % 67.6 Lymphocytes % 17.9 Monocytes % 12.3 Eosinophils % 1.4 Basophils % 0.2 Neutrophils # 4.5 Lymphocytes # 1.2 Monocytes # 0.8 Eosinophils # 0.1 Basophils # 0.0 Sodium 138 Potassium 3.2 L Chloride 104 Carbon Dioxide 27 BUN 21 Creatinine 1.32 H Est GFR ( Amer) > 60 Est GFR (Non-Af Amer) 53 L BUN/Creatinine Ratio 16 Glucose 113 H POC Glucose 164 H Calculated Osmolality 290 Calcium 9.2 Cultures: Cultures 11/08/17 21:55 Wound Culture - Final Left Foot Escherichia coli 11/08/17 21:55 Anaerobic Culture - Preliminary Left Foot At this time, no anaerobic growth is present. The culture will be finalized after 5 days of incubation. 11/08/17 10:50 Wound Culture - Final Left Foot Escherichia coli 11/08/17 00:42 Blood Culture - Preliminary Peripheral Venipuncture No growth. Exam - Constitutional Vitals: Temp Pulse Resp BP Pulse Ox 98.4 F 64 18 143/75 97 11/12/17 06:57 11/12/17 06:57 11/12/17 06:57 11/12/17 06:57 11/12/17 06:57 General appearance: average body habitus, cooperative, no acute distress - Head Head exam: Present: atraumatic, normal inspection, normocephalic - Eye Eye exam: Present: EOMI, normal appearance, PERRL Pupils: Present: normal accommodation - ENT ENT exam: Present: mucous membranes moist - Neck Neck exam: Present: normal inspection - Respiratory Respiratory exam: Present: CTAB. Absent: rales, respiratory distress, rhonchi, wheezes - Cardiovascular Cardiovascular exam: Present: RRR, +S1, +S2 - GI/Abdominal GI/Abdominal exam: Present: normal bowel sounds, soft. Absent: distended, tenderness - Extremities Exam Extremities exam: Present: joint swelling (Left ankle), pedal edema (1+ LLE). Absent: tenderness Additional comments: Left foot wound VAC dressing with sponge well-compressed and transparent dressing C/D/I. Scant amount of serosanguinous drainage noted in the canister. Overlying guaze wrap C/D/I. - Neurological Exam Neurological exam: Present: alert, oriented X3, no focal deficits Additional comments: Tremor noted to the right hand. - Psychiatric Psychiatric exam: Present: normal affect, normal mood - Skin Skin exam: Present: dry, intact, normal color, warm Consult Discharge Plan - Plan Referrals: [facility] Care Provider[facility] - Daphne Rivera, SOCIAL SERVICE TECHNICIAN [Advanced Practice Nurse] - 11/26/17 9:00 am Prescriptions: cefTRIAXone [Rocephin] 2,000 mg IVPB DAILY #37 vial metroNIDAZOLE [Flagyl] 500 mg PO TID #42 tablet - Attending Attestation I examined this patient and my medical decision-making was reviewed with the Resident Physician. I agree with the documented findings, disposition and treatment plan as described except to the extent set forth below.
[2017-11-12] MEDS ORDERED: cefTRIAXone 2,000 MG in 0.9 % Sodium Chloride Mini Bag 100 ML IVPB SCH (10:00)
[2017-11-12] MEDS ORDERED: cefTRIAXone 2,000 MG in Water for inj. (sterile) 20 ML 20 ML IVP SCH (10:00)
[2017-11-12] MEDS: metroNIDAZOLE 500 MG TABLET PO SCH ×2 (11:43→15:27)
--- NOTE | 2017-11-12 13:59 | Discharge Summary ---
- NOTES TO OUTPATIENT PROVIDER Notes to Outpatient Provider: Left foot infection, on wound vac and IV antibiotics at home Orders not resulted at time of discharge: Pending orders 11/08/17 10:50 Culture,Anaerobic [RM] Routine 11/08/17 20:35 Surgical Pathology [PTH] Routine 11/08/17 21:55 Culture,Anaerobic [RM] Routine Date of Encounter: 11/12/17 Time of Encounter: 13:56 - Discharge Diagnosis (1) Foot ulcer, left Priority: Primary Status: Acute Qualifiers: Non-pressure ulcer stage: unspecified non-pressure ulcer stage Qualified Code(s): L97.529 - Non-pressure chronic ulcer of other part of left foot with unspecified severity (2) SYDNEE (acute kidney injury) Priority: Primary Status: Acute (3) Parkinson disease Priority: Secondary Status: Chronic (4) Type 2 diabetes mellitus Priority: Secondary Status: Chronic Qualifiers: Diabetes mellitus mcfp insulin use: without intermodal owner operator truck driver use Diabetes mellitus complication status: with skin complications Diabetes mellitus complication detail: with foot ulcer Qualified Code(s): E11.621 - Type 2 diabetes mellitus with foot ulcer; L97.509 - Non-pressure chronic ulcer of other part of unspecified foot with unspecified severity Hospital course: Mr. Georges is a 72 year old male with the above medical problems, who was admitted with left diabetic foot infection. Left foot CT done in the emergency room showed no evidence of osteomyelitis, showed large deep soft tissue ulceration lateral to the fifth MTP joint. He was started on broad-spectrum IV antibiotics. Podiatry was consulted, patient underwent incision and drainage of left foot. Wound VAC has been applied with which he is being discharged. Wound culture grows Escherichia coli and anaerobic gram-positive cocci. Blood cultures remained negative. Infectious diseases was consulted, recommended 4-6 weeks of IV antibiotics due to the presence of pus in contact with the bone. He is being discharged on IV Rocephin and oral Flagyl per ID recommendations. Patient is otherwise medically stable for discharge. Discharge discussed with: patient, family - Time Spent with Patient Total time spent providing and/or coordinating discharge services: Greater than 30 minutes (45 min) - Discharge Medications Prescriptions: cefTRIAXone [Rocephin] 2,000 mg IVPB DAILY #37 vial metroNIDAZOLE [Flagyl] 500 mg PO TID #42 tablet Home Medications: Carbidopa/Levodopa [Carbidopa-Levodopa 25-100 Tab] 1 tab PO TID 11/07/17 [ History] Metoprolol [Lopressor] 25 mg PO BID 11/07/17 [History] Simvastatin [Zocor] 20 mg PO HS 11/07/17 [History] diazePAM [Valium] 10 mg PO DAILY 11/07/17 [History] hydroCHLOROthiazide [Hydrochlorothiazide] 25 mg PO DAILY 11/07/17 [History] metFORMIN [Glucophage] 500 mg PO BIDWM 11/07/17 [History] cefTRIAXone [Rocephin] 2,000 mg IVPB DAILY #37 vial 11/12/17 [Rx] metroNIDAZOLE [Flagyl] 500 mg PO TID #42 tablet 11/12/17 [Rx] Allergies/Adverse Reactions: 3 Allergy/AdvReac Type Severity Reaction Status Date / Time Penicillins [PCN] Allergy Rash Verified 11/07/17 17:32 Date of admission: 11/08/17 00:07 Primary care physician: [facility] Consults: 11/08/17 10:17 Consult to Wound Care [CONS] Routine Reason for Consult: left foot ulcer Call Completed: No 11/09/17 16:47 Consult to Infectious Diseases [CONS] Routine Consulting Provider: Infectious Disease [place] Reason for Consult: Foot wound, IV abx Call Completed: No 11/10/17 17:29 Consult to Physical Therapy [CONS] Routine Comment: Evaluate, develop and implement POC Reason for Consult: s/p left foot debridement Does patient have active BEDREST order?: No Is patient medically & hemodynamically stable?: Yes Consult to Patrol Sergeant [CONS] Routine Reason for SW Consult: discharge planning 11/11/17 08:28 Consult to Invasive Line Access Team [CONS] Routine Reason for Consult: Picc Line Insertion Line Type: PICC PICC line indications: senior care Med/Antibiotic 11/12/17 11:33 Consult to Invasive Line Access Team [CONS] Routine Reason for Consult: HOME ATB Line Type: Midline Discharging clinician: Marie Portillo Anticipated date of discharge: 11/12/17 - Constitutional Vitals: Temp Pulse Resp BP Pulse Ox 98.1 F 62 18 163/75 96 11/12/17 11:29 11/12/17 11:29 11/12/17 11:29 11/12/17 11:29 11/12/17 11:29 General appearance: Present: A&O X 3, answers questions appropriately - Respiratory Respiratory exam: Present: CTAB. Absent: accessory muscle use, rales, rhonchi, wheezes - Cardiovascular Cardiovascular exam: Present: RRR, +S1, +S2. Absent: diastolic murmur, gallop, rubs, systolic murmur - Patient Status Disposition: Home Health Service Condition: Good Functional capacity at discharge: uses cane/walker Overall status at discharge: patient is progressing back to baseline - Discharge Instructions Instructions: Metronidazole (By mouth), Ceftriaxone (Injection) Follow Up With: Daphne Rivera SOLE LEVELER [Advanced Practice Nurse] - 11/26/17 9:00 am [facility] [Primary Care Provider] - Additional Instructions: F/up with PCP in 1-2 weeks F/up with Podiatry as scheduled - Diet and Activity Activity: as per physical therapy Diet: diabetic diet, low fat, low cholesterol, low salt diet
--- NOTE | 2017-11-12 14:57 | Physician Discharge Referral ---
Home Health/Hosp Referral Info Transfer to: Home Health Attending Provider: Marie Portillo Provider in Charge Post Discharge: PCP - Diagnosis (1) Foot ulcer, left Priority: Primary Status: Acute (2) SYDNEE (acute kidney injury) Priority: Primary Status: Acute (3) Parkinson disease Priority: Secondary Status: Chronic (4) Type 2 diabetes mellitus Priority: Secondary Status: Chronic - Respiratory Orders Smoking Cessation: Smoking cessation has been advised. For more information, call the [place] Tobacco Quit Line at 4-470-YHMN-NOW. - Diet/Nutrition Diet/Nutrition Orders: No Concentrated Sweets (diabetic) - Activity Activity Orders: Walker - Services Needed Following services are medically necessary services: Nursing, Physical Therapy, Occupational Therapy, Home Infusion - Transfer Medications Prescriptions: cefTRIAXone [Rocephin] 2,000 mg IVPB DAILY #37 vial metroNIDAZOLE [Flagyl] 500 mg PO TID #42 tablet Home Medications: Carbidopa/Levodopa [Carbidopa-Levodopa 25-100 Tab] 1 tab PO TID 11/07/17 [ History] Metoprolol [Lopressor] 25 mg PO BID 11/07/17 [History] Simvastatin [Zocor] 20 mg PO HS 11/07/17 [History] diazePAM [Valium] 10 mg PO DAILY 11/07/17 [History] hydroCHLOROthiazide [Hydrochlorothiazide] 25 mg PO DAILY 11/07/17 [History] metFORMIN [Glucophage] 500 mg PO BIDWM 11/07/17 [History] cefTRIAXone [Rocephin] 2,000 mg IVPB DAILY #37 vial 11/12/17 [Rx] metroNIDAZOLE [Flagyl] 500 mg PO TID #42 tablet 11/12/17 [Rx] Allergies/Adverse Reactions: 3 Allergy/AdvReac Type Severity Reaction Status Date / Time Penicillins [PCN] Allergy Rash Verified 11/07/17 17:32 Certification: Further, I certify that my clinical findings support that this patient is homebound (i.e. absences from home require considerable and taxing effort and are for medical reasons or judaism services or infrequently or short duration when for other reasons) because: Homebound Reason: Patient requires assistance of a person or device to safely leave home, Post-surgery restriction and or conditions limit ability to leave home Attestation: My signature below is to certify that this patient is under my care and that I, or nurse practitioner, or a physician's access services assistant working with me, has a face-to -face encounter with this patient.
[2017-11-12 15:14] VITALS: BP 175/79
== END 2017-11-12 16:50 | disposition home health service (06) | DRG 982 ==
LOC: EMEROO 16:56 → 3NENU 16:56 → SUATTDRO 11-08 00:07
PROVIDERS: ADMIT Pediatrics; ATTEND Internal Medicine